=== PATIENT | male | born 1955 | race Caucasian/White ===

== ENCOUNTER 2019-03-14 13:46 | Inpatient (IN) ==
--- NOTE | 2019-03-14 14:09 | Emergency Department Note ---
Disposition General Adult HPI - General Chief complaint: ED Back Pain/Injury Stated complaint: here to be admitted, House [facility] will explai Time Seen by Provider: 03/14/19 14:01 - History of Present Illness Pain Scale: 8 - Related Data Home Medications Medication Instructions Recorded Confirmed Cyclobenzaprine [Flexeril] 10 mg PO TID PRN 01/30/19 02/07/19 Ergocalciferol (VITAMIN D2) 50,000 unit PO MO 01/30/19 02/07/19 [Drisdol (50,000 Unit)] Lisinopril [Zestril] 5 mg PO DAILY 01/30/19 02/07/19 Sennosides/Docusate Sodium 1 each PO DAILY 01/30/19 02/07/19 [Docusate Sodium-Senna Tablet] Oxycodone HCl [Roxybond] 5 mg PO Q6H PRN 02/07/19 02/07/19 Previous Rx's Medication Instructions Recorded DAPTOmycin [Daptomycin] 500 mg IV Q24H #18 vial 03/09/19 Diltiazem CD (24hr) [Cardizem CD] 360 mg PO DAILY #30 cap.er.24h 03/12/19 Lactobacillus [Culturelle] 1 each PO BID #28 cap.sprink 03/12/19 Magnesium Oxide [Mag-Ox] 400 mg PO BID #14 tablet 03/12/19 Metoprolol Succinate 200 mg PO DAILY #30 tab.er.24h 03/12/19 Potassium Chloride 10 meq PO BID #14 tab.er.prt 03/12/19 Sodium Chloride [Sodium Chloride 1 gm PO BIDWM #0 03/12/19 Tab] Warfarin [Coumadin] 7.5 mg PO DAILY@1800 #15 tablet 03/12/19 Allergies Allergy/AdvReac Type Severity Reaction Status Date / Time No Known Allergies Allergy Verified 01/28/19 09:37 Past Medical History - Past Medical History Medical history: Reports: hypertension Surgical history: Reports: non-contributory Psychiatric history: Reports: no psych history - Social History Smoking Status: Never smoker Smokeless Tobacco Status: No Alcohol use: Reports: heavy Drug use: Reports: none Course Vital Signs Temperature 97.7 F 03/14/19 13:53 Pulse Rate 80 03/14/19 13:53 Respiratory Rate 18 03/14/19 13:53 Blood Pressure 112/72 03/14/19 13:53 O2 Sat by Pulse Oximetry 100 03/14/19 13:53 Temperature 97.7 F 03/14/19 13:53 Pulse Rate 80 03/14/19 13:53 Respiratory Rate 18 03/14/19 13:53 Blood Pressure 112/72 03/14/19 13:53 O2 Sat by Pulse Oximetry 100 03/14/19 13:53 Oxygen Delivery Oxygen Delivery Room Air
[2019-03-14 14:46] LABS: Basophils # 0.1 K/mcL (0.0-0.2); Basophils % 0.7 %; Hematocrit 26.8 % (37.5-50.1); Hemoglobin 8.7 g/dL (12.9-16.9); Immature Granulocytes % 0.5 % (0-4); Lymphocytes # 1.4 K/mcL (0.6-4.6); Lymphocytes % 13.5 %; Mean Corpuscular HGB Conc 32.5 g/dL (31.6-35.5); Mean Corpuscular Hemoglobin 30.4 pg (28.0-33.3); Mean Corpuscular Volume 93.7 fL (83.0-100.0); Mean Platelet Volume 10.1 fL (9.4-12.4); Monocytes # 1.1 K/mcL (0.0-1.3); Monocytes % 10.8 %; Neutrophils # 7.8 K/mcL (1.6-8.9); Platelet Count 519 K/mcL (140-400); Red Blood Count 2.86 M/mcL (4.19-5.50); Red Cell Distribution Width 13.8 % (11.5-14.5); Segmented Neutrophils % 74.5 %
[2019-03-14 14:47] LABS: VBG HCO3 25 mEq/L (21-27); VBG PCO2 37 mmHg (41-51); VBG PH 7.43 pH Units (7.32-7.42); VBG PO2 49 mmHg (25-50)
[2019-03-14 14:54] LABS: INR 1.3; Prothrombin Time 15.1 Seconds (9.4-12.1)
[2019-03-14 14:57] LABS: Activated Partial Thrombo Time 32.3 Seconds (26.0-36.0)
[2019-03-14] MEDS ORDERED: 0.9 % Sodium Chloride 1,000 ML IVC ONE (14:59)
[2019-03-14 15:03] LABS: Alanine Aminotransferase 12 Units/L (7-52); Albumin 2.8 g/dL (3.5-5.7); Albumin/Globulin Ratio 0.6 (1.1-2.2); Alkaline Phosphatase 99 Units/L (34-104); Aspartate Amino Transferase 25 Units/L (13-39); BUN/Creatinine Ratio 8 (6-26); Bilirubin,Indirect 0.3 mg/dL (0.0-1.2); Bilirubin,Total 0.3 mg/dL (0.3-1.0); Blood Urea Nitrogen 15 mg/dL (8-23); C-Reactive Protein 124 mg/L (Less than 10); Calcium 7.9 mg/dL (8.6-10.3); Carbon Dioxide 24 mEq/L (23-29); Chloride 97 mEq/L (98-107); Globulin 4.4 g/dL (2.4-3.5); Glucose 130 mg/dL (70-105); Lipase 46 Units/L (11-82); Magnesium 1.3 mg/dL (1.6-2.6); Osmolality,Calculated 281 (280-300); Potassium 3.7 mEq/L (3.5-5.1); Sodium 134 mEq/L (136-145); Total Protein 7.2 g/dL (6.4-8.9); Troponin I < 0.03 ng/mL (< 0.04); eGFR For Non-African Americans 38 (> 60)
--- NOTE | 2019-03-14 16:22 | Emergency Department Note ---
Disposition Clinical Impression: Wound dehiscence, surgical Disposition: Admitted As Inpatient Condition: Serious Forms: ED Satisfaction Letter Time of Disposition: 16:10 General Adult HPI - General Chief complaint: ED Back Pain/Injury Stated complaint: here to be admitted, House [facility] will explai Time Seen by Provider: 03/14/19 14:01 Source: patient Limitations: no limitations Nursing Notes Reviewed: Yes Vital Signs Reviewed: Yes - History of Present Illness HPI Narrative: Patient presents emergency Department with chief complaint of wound dehiscence of his back. 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 They have been at a rehabilitation facility now for 3 days, he had been doing well, yesterday they noticed a small opening in his wound, today when they changed his dressing, the opening had significantly increased and there was yellow drainage, and they would contacted the nurse practitioner for the surgeon who referred him to the emergency department. He states that he has actually been doing very well he is eating he is drinking he is getting up and walking around he has no new numbness weakness no fevers no chills. Denies headache neck pain chest pain or shortness of breath he denies any increased back pain. He denies any other acute concerns. Pain Scale: 8 - Related Data Home Medications Medication Instructions Recorded Confirmed Cyclobenzaprine [Flexeril] 10 mg PO TID PRN 01/30/19 03/14/19 Ergocalciferol (VITAMIN D2) 50,000 unit PO MO 01/30/19 03/14/19 [Drisdol (50,000 Unit)] Lisinopril [Zestril] 5 mg PO DAILY 01/30/19 03/14/19 Sennosides/Docusate Sodium 1 each PO DAILY 01/30/19 03/14/19 [Docusate Sodium-Senna Tablet] Oxycodone HCl [Roxybond] 5 mg PO Q6H PRN 02/07/19 03/14/19 Previous Rx's Medication Instructions Recorded DAPTOmycin [Daptomycin] 500 mg IV Q24H #18 vial 03/09/19 Diltiazem CD (24hr) [Cardizem CD] 360 mg PO DAILY #30 cap.er.24h 03/12/19 Lactobacillus [Culturelle] 1 each PO BID #28 cap.sprink 03/12/19 Magnesium Oxide [Mag-Ox] 400 mg PO BID #14 tablet 03/12/19 Metoprolol Succinate 200 mg PO DAILY #30 tab.er.24h 03/12/19 Potassium Chloride 10 meq PO BID #14 tab.er.prt 03/12/19 Sodium Chloride [Sodium Chloride 1 gm PO BIDWM #0 03/12/19 Tab] Warfarin [Coumadin] 7.5 mg PO DAILY@1800 #15 tablet 03/12/19 Allergies Allergy/AdvReac Type Severity Reaction Status Date / Time No Known Allergies Allergy Verified 01/28/19 09:37 All systems ED: reviewed and negative except as stated. Review of Systems: As Per HPI Past Medical History - Past Medical History Medical history: Reports: atrial fibrillation, cirrhosis, hypertension Surgical history: Reports: non-contributory Psychiatric history: Reports: no psych history - Social History Smoking Status: Never smoker Smokeless Tobacco Status: No Alcohol use: Reports: heavy Drug use: Reports: none Physical Exam - General Limitations: no limitations General appearance: alert, in no apparent distress - Head Head exam: atraumatic, normocephalic - Eye Eye exam: Present: normal appearance, PERRL - ENT ENT exam: normal exam, normal oropharynx - Neck Neck exam: Present: normal inspection, full ROM - Chest Chest inspection: Present: normal inspection, symmetric chest wall rise - Respiratory Respiratory exam: Present: normal lung sounds bilaterally, respiratory distress - Cardiovascular Cardiovascular exam: Present: regular rate, normal rhythm - Abdominal Exam Abdominal exam: Present: soft, Non-Tender. Absent: organomegaly - Male exam: Present: other (Intact perineal sensation) - Extremities Exam Extremities exam: Present: normal inspection, full ROM, normal capillary refill. Absent: tenderness, pedal edema - Expanded Lower Extremity Exam Neurovascular/Tendon exam: Present: normal capillary refill. Absent: pulse de ficit, motor deficit, sensory deficit, tendon deficit - Back Exam Back exam: Present: other (Evaluation of the patient's back reveals a large midline incision, approximately two thirds [address] the way down, there is evidence for wound dehiscence, the wound is open approximately 4 cm in the vertical direction, is open about 1 cm wide, and extends approximately 2 and half centimeter deep, no obvious tracking, but there is visualized underlying muscle and soft tissue. Small amount of yellow drainage, with a slightly abnormal odor, no surrounding erythema, no palpable crepitus no significant swelling.) - Neurological Exam Neurological exam: Present: alert, oriented X3, CN II-XII intact, motor sensory deficit, reflexes normal, other (No evidence of cauda equina syndrome) - Psychiatric Psychiatric exam: Present: normal affect, normal mood - Skin Skin exam: Present: warm, intact, other (Patient is slightly pale in appearance no jaundice no petechia) Course Vital Signs Temperature 97.7 F 03/14/19 13:53 Pulse Rate 80 03/14/19 13:53 Respiratory Rate 18 03/14/19 13:53 Blood Pressure 112/72 03/14/19 13:53 O2 Sat by Pulse Oximetry 100 03/14/19 13:53 Temperature 97.7 F 03/14/19 14:54 Pulse Rate 80 03/14/19 14:54 Respiratory Rate 18 03/14/19 14:54 Blood Pressure 112/72 03/14/19 14:54 O2 Sat by Pulse Oximetry 100 03/14/19 14:54 Oxygen Delivery Oxygen Delivery Room Air Medical Decision Making - [facility] Narrative Medical decision making narrative: Patient had an IV placed, he was started on IV fluids, he had already received IV daptomycin today. I contacted Dr. Nguyen this patient's neurosurgeon/back specialist surgeon, who performed the procedure, described his evidence of wound dehiscence on my examination, he has recommended that the patient undergo lab oratory testing, be admitted to medicine, consult infectious disease and he will see this patient tonight. He will decide any further management in regards to imaging or surgical management. The patient has no signs or symptoms of epidural abscess he has no increased pain no fever no numbness no weakness no incontinence he has normal reflexes and a normal neurologic exam. No emergency department imaging indicated at this time further management to be provided by neurosurgical/predictive maintenance specialist. Basic laboratory studies showed stable chronic anemia, improved creatinine of 1.8 decreased from 1.9 no left leg disturbance, mildly elevated lactic acid of 2.4, sed rate of 70 which is stable CRP of 124 which is increasing from 98. Remainder laboratory studies were within acceptable limits. Chest x-ray demonstrated a right pleural effusion, slightly increased from previous no other acute abnormality. Patient has no chest pain or shortness of breath no tachycardia and no hypoxia, and had a pleural effusion there previously, the more pronounced appears may be positional, this will require further evaluation as an inpatient but currently patient is without symptoms and he had a prior pleural effusion, no indication for further evaluation emergency apartment. The patient admitted to the hospital service for further evaluation and management. - Medical Records Medical records reviewed: Yes I reviewed the patient's medical records. - Lab Data Lab results reviewed: Yes I reviewed the patient's lab results. Result diagrams: 03/14/19 14:25 03/14/19 14:25 Lab Results 03/14/19 03/14/19 03/14/19 Range/Units 14:25 14:25 14:25 WBC 10.4 (4.3-11.1) K/mcL RBC 2.86 L (4.19-5.50) M/mcL Hgb 8.7 L (12.9-16.9) g/dL Hct 26.8 L (37.5-50.1) % MCV 93.7 (83.0-100.0) fL MCH 30.4 (28.0-33.3) pg MCHC 32.5 (31.6-35.5) g/dL RDW 13.8 (11.5-14.5) % Plt Count 519 H (140-400) K/mcL MPV 10.1 (9.4-12.4) fL Immature Gran % 0.5 (0-4) % Seg Neutrophils % 74.5 % Lymphocytes % 13.5 % Monocytes % 10.8 % Eosinophils % 0.0 % Basophils % 0.7 % Neutrophils # 7.8 (1.6-8.9) K/mcL Lymphocytes # 1.4 (0.6-4.6) K/mcL Monocytes # 1.1 (0.0-1.3) K/mcL Eosinophils # 0.0 (0.0-0.6) K/mcL Basophils # 0.1 (0.0-0.2) K/mcL ESR 70 H (0-10) mm/hr PT (9.4-12.1) Seconds INR APTT (26.0-36.0) Seconds VBG pH (7.32-7.42) pH Units VBG pCO2 (41-51) mmHg VBG pO2 (25-50) mmHg VBG HCO3 (21-27) mEq/L Sodium (136-145) mEq/L Potassium (3.5-5.1) mEq/L Chloride (98-107) mEq/L Carbon Dioxide (23-29) mEq/L BUN (8-23) mg/dL Creatinine (0.70-1.30) mg/dL Est GFR ( Amer) (> 60) Est GFR (Non-Af Amer) (> 60) BUN/Creatinine Ratio (6-26) Glucose (70-105) mg/dL Calculated Osmolality (280-300) Lactic Acid (0.5-2.2) mmol/L Calcium (8.6-10.3) mg/dL Magnesium (1.6-2.6) mg/dL Total Bilirubin (0.3-1.0) mg/dL Direct Bilirubin (0.0-0.2) mg/dL Indirect Bilirubin (0.0-1.2) mg/dL AST (13-39) Units/L ALT (7-52) Units/L Alkaline Phosphatase (34-104) Units/L Ammonia 35 (16-53) mcmol/L Troponin I (< 0.04) ng/mL C-Reactive Protein (Less than 10) mg/L Serum Total Protein (6.4-8.9) g/dL Albumin (3.5-5.7) g/dL Globulin (2.4-3.5) g/dL Albumin/Globulin Ratio (1.1-2.2) Lipase (11-82) Units/L 03/14/19 03/14/19 03/14/19 Range/Units 14:25 14:25 14:25 WBC (4.3-11.1) K/mcL RBC (4.19-5.50) M/mcL Hgb (12.9-16.9) g/dL Hct (37.5-50.1) % MCV (83.0-100.0) fL MCH (28.0-33.3) pg MCHC (31.6-35.5) g/dL RDW (11.5-14.5) % Plt Count (140-400) K/mcL MPV (9.4-12.4) fL Immature Gran % (0-4) % Seg Neutrophils % % Lymphocytes % % Monocytes % % Eosinophils % % Basophils % % Neutrophils # (1.6-8.9) K/mcL Lymphocytes # (0.6-4.6) K/mcL Monocytes # (0.0-1.3) K/mcL Eosinophils # (0.0-0.6) K/mcL Basophils # (0.0-0.2) K/mcL ESR (0-10) mm/hr PT 15.1 H (9.4-12.1) Seconds INR 1.3 APTT 32.3 (26.0-36.0) Seconds VBG pH (7.32-7.42) pH Units VBG pCO2 (41-51) mmHg VBG pO2 (25-50) mmHg VBG HCO3 (21-27) mEq/L Sodium 134 L (136-145) mEq/L Potassium 3.7 (3.5-5.1) mEq/L Chloride 97 L (98-107) mEq/L Carbon Dioxide 24 (23-29) mEq/L BUN 15 (8-23) mg/dL Creatinine 1.83 H (0.70-1.30) mg/dL Est GFR ( Amer) 46 L (> 60) Est GFR (Non-Af Amer) 38 L (> 60) BUN/Creatinine Ratio 8 (6-26) Glucose 130 H (70-105) mg/dL Calculated Osmolality 281 (280-300) Lactic Acid 2.4 H (0.5-2.2) mmol/L Calcium 7.9 L (8.6-10.3) mg/dL Magnesium 1.3 L (1.6-2.6) mg/dL Total Bilirubin 0.3 (0.3-1.0) mg/dL Direct Bilirubin 0.0 (0.0-0.2) mg/dL Indirect Bilirubin 0.3 (0.0-1.2) mg/dL AST 25 (13-39) Units/L ALT 12 (7-52) Units/L Alkaline Phosphatase 99 (34-104) Units/L Ammonia (16-53) mcmol/L Troponin I < 0.03 (< 0.04) ng/mL C-Reactive Protein 124 H (Less than 10) mg/L Serum Total Protein 7.2 (6.4-8.9) g/dL Albumin 2.8 L (3.5-5.7) g/dL Globulin 4.4 H (2.4-3.5) g/dL Albumin/Globulin Ratio 0.6 L (1.1-2.2) Lipase 46 (11-82) Units/L 03/14/19 Range/Units 14:42 WBC (4.3-11.1) K/mcL RBC (4.19-5.50) M/mcL Hgb (12.9-16.9) g/dL Hct (37.5-50.1) % MCV (83.0-100.0) fL MCH (28.0-33.3) pg MCHC (31.6-35.5) g/dL RDW (11.5-14.5) % Plt Count (140-400) K/mcL MPV (9.4-12.4) fL Immature Gran % (0-4) % Seg Neutrophils % % Lymphocytes % % Monocytes % % Eosinophils % % Basophils % % Neutrophils # (1.6-8.9) K/mcL Lymphocytes # (0.6-4.6) K/mcL Monocytes # (0.0-1.3) K/mcL Eosinophils # (0.0-0.6) K/mcL Basophils # (0.0-0.2) K/mcL ESR (0-10) mm/hr PT (9.4-12.1) Seconds INR APTT (26.0-36.0) Seconds VBG pH 7.43 H (7.32-7.42) pH Units VBG pCO2 37 L (41-51) mmHg VBG pO2 49 (25-50) mmHg VBG HCO3 25 (21-27) mEq/L Sodium (136-145) mEq/L Potassium (3.5-5.1) mEq/L Chloride (98-107) mEq/L Carbon Dioxide (23-29) mEq/L BUN (8-23) mg/dL Creatinine (0.70-1.30) mg/dL Est GFR ( Amer) (> 60) Est GFR (Non-Af Amer) (> 60) BUN/Creatinine Ratio (6-26) Glucose (70-105) mg/dL Calculated Osmolality (280-300) Lactic Acid (0.5-2.2) mmol/L Calcium (8.6-10.3) mg/dL Magnesium (1.6-2.6) mg/dL Total Bilirubin (0.3-1.0) mg/dL Direct Bilirubin (0.0-0.2) mg/dL Indirect Bilirubin (0.0-1.2) mg/dL AST (13-39) Units/L ALT (7-52) Units/L Alkaline Phosphatase (34-104) Units/L Ammonia (16-53) mcmol/L Troponin I (< 0.04) ng/mL C-Reactive Protein (Less than 10) mg/L Serum Total Protein (6.4-8.9) g/dL Albumin (3.5-5.7) g/dL Globulin (2.4-3.5) g/dL Albumin/Globulin Ratio (1.1-2.2) Lipase (11-82) Units/L
[2019-03-14] MEDS ORDERED: Mag Hydrox/Al Hydrox/Simeth 30 ML UDC PO PRN (16:51)
[2019-03-14] MEDS ORDERED: *HR* Promethazine 25 MG/ML VIAL IVP PRN (16:51)
[2019-03-14] MEDS ORDERED: Naloxone 0.4 MG/ML INJ IVP PRN (16:51)
[2019-03-14] MEDS ORDERED: Ondansetron 4 MG/2 ML VIAL IVP PRN (16:51)
--- NOTE | 2019-03-14 16:57 | Internal Med History&Physical ---
Date of Encounter: 03/14/19 Time of Encounter: 16:54 Internal Medicine - H&P: HPI Admitted From: Long-term Nursing Facility Plans for Post Hospital Care: Transfer [facility] History of present illness: Mr. Atkins is a 63 year old male presents emergency Department with chief complaint of wound dehiscence of his back. 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 He has been at a rehabilitation facility now for 3 days, he had been doing well, yesterday they noticed a small opening in his wound, today when they changed his dressing, the opening had significantly increased and there was yellow drainage, and they would contacted the nurse practitioner for the surgeon who referred him to the emergency department. He states that he has actually been doing very well he is eating he is drinking he is getting up and walking around he has no new numbness weakness no fevers no chills. Denies headache neck pain chest pain or shortness of breath he denies any increased back pain. He denies any other acute concerns. While in the ED, patient vital signs were stable, labs were unremarkable in comparison to his baseline. Patient will be admitted for further evaluation. CODE STATUS discussed with patient, he wishes to be full code. Past Med Surg Social Fam HX - Past Medical History Medical history: atrial fibrillation, cirrhosis, hypertension Additional medical history: anemia Psychiatric history: no psych history - Past Surgical History Surgical History: non-contributory Additional surgical history: Spinal fusion - Social History Smoking Status: Never smoker Smokeless Tobacco Status: No Alcohol use: heavy Drug use: none - Family History Brother Adopted: No Family Member Ethnicity: Non- Living Status: Still Living Hx Family Cardiac Disorders: No Hx Family Respiratory Disorders: Yes (Asthma) Hx Family Cancer: No Hx Family GI Disorders: No Hx Family Endocrine Disorder: No Hx Family Neuromuscular Disorders: No Hx Family Neurologic Disorders: No Hx Family HEENT Disorders: No Hx Family Autoimmune Disorders: No Mother Hx Family Cardiac Disorders: Yes Internal Medicine - H&P: Meds Cyclobenzaprine [Flexeril] 10 mg PO TID PRN 01/30/19 [History] Ergocalciferol (VITAMIN D2) [Drisdol (50,000 Unit)] 50,000 unit PO MO 01/30/19 [History] Lisinopril [Zestril] 5 mg PO DAILY 01/30/19 [History] Sennosides/Docusate Sodium [Docusate Sodium-Senna Tablet] 1 each PO DAILY 01/30/19 [History] Oxycodone HCl [Roxybond] 5 mg PO Q6H PRN 02/07/19 [History] DAPTOmycin [Daptomycin] 500 mg IV Q24H #18 vial 03/09/19 [Rx] Diltiazem CD (24hr) [Cardizem CD] 360 mg PO DAILY #30 cap.er.24h 03/12/19 [Rx] Lactobacillus [Culturelle] 1 each PO BID #28 cap.sprink 03/12/19 [Rx] Magnesium Oxide [Mag-Ox] 400 mg PO BID #14 tablet 03/12/19 [Rx] Metoprolol Succinate 200 mg PO DAILY #30 tab.er.24h 03/12/19 [Rx] Potassium Chloride 10 meq PO BID #14 tab.er.prt 03/12/19 [Rx] Sodium Chloride [Sodium Chloride Tab] 1 gm PO BIDWM #0 03/12/19 [Rx] Warfarin [Coumadin] 7.5 mg PO DAILY@1800 #15 tablet 03/12/19 [Rx] Allergy/AdvReac Type Severity Reaction Status Date / Time No Known Allergies Allergy Verified 01/28/19 09:37 All Systems PM: A 10-system review of systems was performed and is negative for pertinent findings except as documented above in the HPI. Review of systems: REVIEW OF SYSTEMS: CONSTITUTIONAL: No weight loss, fever, chills, weakness or fatigue. HEENT: Eyes: No visual loss, blurred vision, double vision or yellow sclerae. Ears, Nose, Throat: No hearing loss, sneezing, congestion, runny nose or sore throat. SKIN: No rash or itching. CARDIOVASCULAR: No chest pain, chest pressure or chest discomfort. No palpitations or edema. RESPIRATORY: No shortness of breath, cough or sputum. GASTROINTESTINAL: No anorexia, nausea, vomiting or diarrhea. No abdominal pain or blood. GENITOURINARY: No dysuria, urgency, or frequency. NEUROLOGICAL: No headache, dizziness, syncope, paralysis, ataxia, numbness or tingling in the extremities. No change in bowel or bladder control. MUSCULOSKELETAL: see HPI. HEMATOLOGIC: No anemia, bleeding or bruising. LYMPHATICS: No enlarged nodes. No history of splenectomy. PSYCHIATRIC: No history of depression or anxiety. ENDOCRINOLOGIC: No reports of sweating, cold or heat intolerance. No polyuria or polydipsia. - Constitutional Vitals: Temp Pulse Resp BP Pulse Ox 97.7 F 80 18 112/72 100 03/14/19 14:54 03/14/19 14:54 03/14/19 14:54 03/14/19 14:54 03/14/19 14:54 General appearance: Present: A&O X 3 Exam: PHYSICAL EXAMINATION: GENERAL APPEARANCE: The patient is alert, oriented and in no acute distress. HEENT: Head is normocephalic. The sinuses are nontender. Pupils are equal and reactive. The nares are patent. Oropharynx clear without lesions. NECK: Supple without lymphadenopathy. HEART: Regular rate and rhythm. LUNGS: No crackles or wheezes are heard. ABDOMEN: Soft, nontender, nondistended with good bowel sounds heard. Inguinal area is normal. EXTREMITIES: Without cyanosis, clubbing or edema. NEUROLOGICAL: Gross nonfocal. SKIN: back wound dressing intact. Internal Med - H&P Results - Labs CBC & Chem 7: 03/14/19 14:25 03/14/19 14:25 Labs: Short CBC 03/14/19 Range/Units 14:25 WBC 10.4 (4.3-11.1) K/mcL Hgb 8.7 L (12.9-16.9) g/dL Hct 26.8 L (37.5-50.1) % Plt Count 519 H (140-400) K/mcL Neutrophils # 7.8 (1.6-8.9) K/mcL BMP 03/14/19 14:25 Sodium 134 L Potassium 3.7 Chloride 97 L Carbon Dioxide 24 BUN 15 Creatinine 1.83 H Glucose 130 H Calcium 7.9 L Cardiac Enzymes 03/14/19 Range/Units 14:25 Troponin I < 0.03 (< 0.04) ng/mL Liver Function 03/14/19 Range/Units 14:25 Total Bilirubin 0.3 (0.3-1.0) mg/dL Direct Bilirubin 0.0 (0.0-0.2) mg/dL AST 25 (13-39) Units/L ALT 12 (7-52) Units/L Alkaline Phosphatase 99 (34-104) Units/L Albumin 2.8 L (3.5-5.7) g/dL - ABG Interpretation ABG results: 03/14/19 14:42 VBG pH 7.43 H VBG pCO2 37 L VBG pO2 49 VBG HCO3 25 - Impressions ITS Impressions Chest X-Ray 03/14/19 14:01 IMPRESSION: 1. Layering right pleural effusion with associated atelectasis. D/ / Ron Singh MD / Ron Singh MD Interpreting Provider: Ron Singh MD - Assessment and Plan (1) Wound dehiscence, surgical Current Visit: Yes Status: Acute Assessment and plan: Continue scheduled IV antibiotics, orthopedic surgery consult, ID consult. Wound care consult. Qualifiers: Encounter type: initial encounter Qualified Code(s): T81.31XA - Disruption of external operation (surgical) wound, not elsewhere classified, initial encounter (2) Wound infection after surgery Current Visit: No Status: Acute Assessment and plan: Continue current antibiotics, ID consult. (3) Hypomagnesemia Current Visit: Yes Status: Acute Assessment and plan: Replaced, continue home oral magnesium supplement, repeat labs in the morning. (4) CKD (chronic kidney disease) Current Visit: No Status: Chronic Assessment and plan: Cr at the baseline, continue monitoring. Qualifiers: Chronic kidney disease stage: stage 3 (moderate) Qualified Code(s): N18.3 - Chronic kidney disease, stage 3 (moderate) (5) HTN (hypertension) Current Visit: No Status: Chronic Assessment and plan: Continue monitoring BP, continue home medication. Qualifiers: Hypertension type: essential hypertension Qualified Code(s): I10 - Essential (primary) hypertension (6) Afib Current Visit: No Status: Acute Assessment and plan: Rate controlled, INR 1.3 today continue home medication including Coumadin pharmacy to dose. Qualifiers: Atrial fibrillation type: unspecified Qualified Code(s): I48.91 - Unspec ified atrial fibrillation (7) Severe protein-calorie malnutrition Current Visit: No Status: Acute Assessment and plan: nutrition consult if indicated. (8) DVT prophylaxis Current Visit: Yes Status: Acute Assessment and plan: Patient on Coumadin. - Time Spent With Patient Total time spent is greater than 50% in coordination of care (as documented) at patient's floor/unit and/or counseling patient: Greater than 35 minutes
[2019-03-14] MEDS ORDERED: DAPTOmycin 500 MG VIAL IVPB SCH (17:00)
[2019-03-14] MEDS ORDERED: *HR* Warfarin 7.5 MG TABLET PO ONE (18:00)
[2019-03-14] MEDS ORDERED: Warfarin perPT PO PRN (18:00)
[2019-03-14] MEDS: *HR* OxyCODONE Immed Rel 5 MG TABLET PO PRN (19:06)
[2019-03-14] MEDS: Lactobacillus 1 EACH CAP.SPRINK PO SCH (21:27)
[2019-03-14] MEDS: Magnesium Oxide 400 MG TABLET PO SCH (21:27)
[2019-03-15] MEDS: *HR* OxyCODONE Immed Rel 5 MG TABLET PO PRN (03:29)
[2019-03-15 04:31] LABS: Basophils # 0.1 K/mcL (0.0-0.2); Basophils % 0.7 %; Hematocrit 26.7 % (37.5-50.1); Hemoglobin 8.8 g/dL (12.9-16.9); Immature Granulocytes % 0.5 % (0-4); Lymphocytes # 1.4 K/mcL (0.6-4.6); Lymphocytes % 14.8 %; Mean Corpuscular Hemoglobin 30.7 pg (28.0-33.3); Mean Platelet Volume 10.1 fL (9.4-12.4); Monocytes # 1.2 K/mcL (0.0-1.3); Monocytes % 11.9 %; Platelet Count 399 K/mcL (140-400); Red Blood Count 2.87 M/mcL (4.19-5.50); Red Cell Distribution Width 13.9 % (11.5-14.5); Segmented Neutrophils % 72.1 %
[2019-03-15 04:42] LABS: INR 1.4; Prothrombin Time 15.3 Seconds (9.4-12.1)
[2019-03-15 04:46] LABS: Calcium 8.2 mg/dL (8.6-10.3); Magnesium 1.7 mg/dL (1.6-2.6); Potassium 3.6 mEq/L (3.5-5.1)
[2019-03-15 07:16] LABS: Bilirubin,Urine Negative (Negative); Blood,Urine Negative (Negative); Clarity,Urine Clear (Clear); Color,Urine Yellow (Yellow); Glucose,Urine (UA) Normal (Normal); Ketones,Urine Negative (Negative); Leukocyte Esterase,Urine Negative (Negative); Nitrite,Urine Negative (Negative); PH,Urine 6.5 pH Units (5.0-8.0); Protein,Urine Trace mg/dL (Neg-Trace); Specific Gravity,Urine 1.007 (1.010-1.025); Urobilinogen,Urine Normal (Normal)
--- NOTE | 2019-03-15 08:47 | Infectious Disease Consult ---
Infectious Disease-Consult - Encounter Date/Time Date of Encounter: 03/15/19 Time of Encounter: 11:12 - Data of Consult Patient: known to practice within the last 3 years Reason for consult: Surgical wound dehiscence Consult date: 03/15/19 Requesting Physician: Mojgan Roth Primary Care Provider: Amanda Kelley CNP - HPI HPI: Mr. Atkins is a 63 -year-old male with a past medical history of A. fib, cirrhosis, hypertension, acute kidney injury on CKD, and is post T11-L2 spinal fusion secondary to L1 burst fracture in November, status post I&D with hardware removal in January currently on IV daptomycin therapy. The patient was admitted to the hospital 03/14/19 for surgical wound dehiscence. We are consulted 03/15/19 for further workup and treatment recommendations for surgical wound dehiscence. Briefly, the patient is a 63-year-old male with past medical history as stated above. The patient is well-known to the infectious disease services we are really following his course of treatment and monitoring his outpatient antibiotic therapy. The patient was admitted to the hospital back in January after he developed altered mental status and surgical wound infection that is post spinal fusion in November at [facility] secondary to an L1 burst fracture. He was taken to the operating room 02/12/19 Dr. Nguyen and had removal of hardware and I&D. Intraoperative cultures were negative, but preop swab cultures of the wound were positive for MRSA. He was initially started on IV vancomycin, but developed acute kidney injury so we switched over to IV daptomycin. He was discharged to rehabilitation couple of weeks ago and was discharged home from there about 5 days ago. Apparently, he developed surgical wound dehiscence and came back to the ER for evaluation. Upon arrival, he was afebrile hemodynamically stable. White blood cell count was normal. ESR is improved at 70 with a CRP of 124. Lactic acid was initially mildly elevated, but normalized. LFTs were normal. Serum creatinine was elevated at 1.83 consistent with his AK I on CK D. He had a chest x-ray that showed a layering right pleural effusion with associated atelectasis. Blood cultures were obtained 2 sets and are pending. He was restarted on his IV daptomycin and admitted to the hospital for further evaluation. The patient has remained afebrile hemodynamically stable. Urinalysis was negative. Orthopedics consult is pending. Currently, he is on IV daptomycin. We have been asked to evaluate and make further recommendations. During my exam today, the patient endorses a history as stated above. He states overall he has been feeling well. Denies fevers, chills, rigors. Denies chest pain, shortness of breath, or cough. Denies nausea, vomiting, diarrhea, or constipation. Reports very minimal pain the surgical site. Reports a small amount of green/yellow drainage that is very thin in nature and not particularly purulent. States appetite is been okay. Has not had dialysis since discharge. Denies oral thrush or new skin rashes. States he has been 100% compliant with his IV antibiotics. The patient had been residing at a local rehabilitation facility until Friday when he was discharged home. Denies tobacco or illicit drug use. Denies chronic infectious diseases. Denies recent travel outside the [facility]. Previously was a heavy drinker and was drinking at least 6 beers the day prior t o his recent admission. - ROS Review of Systems: All systems reviewed and no additional remarkable complaints except as stated. - Results CBC & Chem 7: 03/17/19 08:45 03/16/19 07:22 - Exam Vitals: Temp Pulse Resp BP Pulse Ox 97.3 F L 86 14 156/83 97 03/15/19 03:24 03/15/19 03:24 03/15/19 03:24 03/15/19 03:24 03/15/19 07:28 Exam: Head: Atraumatic, normal inspection, normocephalic. Eye: EOMI, PERRLA, no scleral icterus noted. ENT: Mucous membranes moist. No odontogenic infection noted. Neck: Normal inspection, no meningismus. Respiratory: Clear to auscultation. No rales, respiratory distress, rhonchi, or wheezes noted. Cardiovascular: Regular rate and rhythm, S1 and S2 audible. No murmurs, rubs, or gallops. GI: Soft, nondistended, normal bowel sounds. Extremities:No joint swelling, pedal edema, or tenderness noted. Back: Surgical site noted with wound dehiscence to the middle of the surgical site. Small amount of yellow/green drainage noted. No foul odor surrounding erythema noted. The skin does appear macerated. Other sutures and Steri-Strips intact. No tenderness or fluctuance noted. Neurological: Alert, oriented 3, no focal deficits. Psychiatric: normal affect, normal mood. Skin: Dry, intact, warm. Normal color. No rashes. Cyclobenzaprine [Flexeril] 10 mg PO TID PRN 01/30/19 [History] Ergocalciferol (VITAMIN D2) [Drisdol (50,000 Unit)] 50,000 unit PO MO 01/30/19 [History] Lisinopril [Zestril] 5 mg PO DAILY 01/30/19 [History] Sennosides/Docusate Sodium [Docusate Sodium-Senna Tablet] 1 each PO DAILY 01/30/19 [History] Oxycodone HCl [Roxybond] 5 mg PO Q6H PRN 02/07/19 [History] DAPTOmycin [Daptomycin] 500 mg IV Q24H #18 vial 03/09/19 [Rx] Diltiazem CD (24hr) [Cardizem CD] 360 mg PO DAILY #30 cap.er.24h 03/12/19 [Rx] Lactobacillus [Culturelle] 1 each PO BID #28 cap.sprink 03/12/19 [Rx] Magnesium Oxide [Mag-Ox] 400 mg PO BID #14 tablet 03/12/19 [Rx] Metoprolol Succinate 200 mg PO DAILY #30 tab.er.24h 03/12/19 [Rx] Potassium Chloride 10 meq PO BID #14 tab.er.prt 03/12/19 [Rx] Sodium Chloride [Sodium Chloride Tab] 1 gm PO BIDWM #0 03/12/19 [Rx] Warfarin [Coumadin] 7.5 mg PO DAILY@1800 #15 tablet 03/12/19 [Rx] Allergy/AdvReac Type Severity Reaction Status Date / Time No Known Allergies Allergy Verified 03/15/19 10:39 - Assessment and Plan (1) Wound dehiscence, surgical Current Visit: Yes Status: Acute Location: Lumbar spine. Etiology: Likely multifactorial: Poor nutrition was a bony prominence plus possible infection. Orthospine consult. Await recommendations. ESR improved, but CRP back up. Currently on daptomycin. Qualifiers: Encounter type: initial encounter Qualified Code(s): T81.31XA - Disruption of external operation (surgical) wound, not elsewhere classified, initial encounter SNOMED Code(s): 506437729 (2) Wound infection after surgery Current Visit: No Status: Acute Causative organism: MRSA. Etiology: Likely secondary to recent surgical procedure. Status post posterior fusion of T 11 through L2 at [facility] 3 weeks prior to admission. CT thoracic and lumbar spine 02/09/19 showed a posterior changes status post multilevel thoracolumbar fusion with satisfactory position of the pedicle screws and rods and L1 burst fracture with retropulsion causing severe canal stenosis with evidence of decompressive laminectomy identified. Ortho-spine consult and following. Status post fusion exploration, removal of hardware, and I & D 02/12/[address] Nguyen. Operative note reviewed. No gross purulence noted. Intra-op cultures negative. Status post I & D and closure of wound 02/15/[address] Nguyen. Operative note reviewed. No purulence noted. No additional cultures obtained. Currently on Daptomycin. SNOMED Code(s): 47657998, 870109725 (3) ESTEVAN (acute kidney injury) Current Visit: No Status: Acute Improved. Has not been on dialysis since discharge from the hospital. Serum creatinine improves. Strict I's and O's. Avoid nephrotoxic agents and dose adjust medications. SNOMED Code(s): 49642531, 47240413 (4) History of lumbar fusion Current Visit: No Status: Chronic Status post spinal fusion T11-L2 at [facility] secondary to L1 burst fracture. SNOMED Code(s): 099602230, 309308412 (5) Anemia Current Visit: No Status: Chronic Qualifiers: Anemia type: iron deficiency Iron deficiency anemia type: unspecified iron deficiency Qualified Code(s): D50.9 - Iron deficiency anemia, unspecified SNOMED Code(s): 077863832 (6) CKD (chronic kidney disease) Current Visit: No Status: Chronic Qualifiers: Chronic kidney disease stage: stage 3 (moderate) Qualified Code(s): N18.3 - Chronic kidney disease, stage 3 (moderate) SNOMED Code(s): 610803608 (7) Afib Current Visit: No Status: Acute Qualifiers: Atrial fibrillation type: unspecified Qualified Code(s): I48.91 - Unspecified atrial fibrillation SNOMED Code(s): 57083085 (8) Cirrhosis Current Visit: No Status: Chronic Qualifiers: Hepatic cirrhosis type: alcoholic cirrhosis Qualified Code(s): K70.31 - Alcoholic cirrhosis of liver with ascites SNOMED Code(s): 47150062 - Recommendations Recommendations: Check CK level. Await blood cultures to finalize. Await further recommendations from the orthospine team. If no further surgical intervention is planned, will order wound cultures. Wound care per the orthospine team. Continue daptomycin 500 mg IV every 24 hours. Duration of treatment depends on the clinical picture. Monitor renal function and does adjust antibiotics. Past Med Surg Social Fam HX - Past Medical History Medical history: atrial fibrillation, cirrhosis, hypertension Additional medical history: anemia Psychiatric history: no psych history - Past Surgical History Surgical History: non-contributory Additional surgical history: Spinal fusion - Social History Smoking Status: Never smoker Smokeless Tobacco Status: No Alcohol use: heavy Drug use: none - Family History Mother Hx Family Cardiac Disorders: Yes Brother Adopted: No Family Member Ethnicity: Non- Living Status: Still Living Hx Family Cardiac Disorders: No Hx Family Respiratory Disorders: Yes (Asthma) Hx Family Cancer: No Hx Family GI Disorders: No Hx Family Endocrine Disorder: No Hx Family Neuromuscular Disorders: No Hx Family Neurologic Disorders: No Hx Family HEENT Disorders: No Hx Family Autoimmune Disorders: No Consult Discharge Plan - Plan Referrals: Amanda Kelley, COTTON PULLER [Primary Care Provider] - - Attending Attestation I have personally performed a face to face evaluation on this patient. I have reviewed and agree with the care plan. History and Exam by me shows: Patient is a 61-year-old gentleman known to our service who is back for wound dehiscence of surgical wound of the lumbar spine. Previously patient had a surgery done at an outside facility with hardware placement and get infected with MRSA. Patient presented here and was taken to surgery by Dr. Nguyen where the hardware was removed and patient had a washout and debridement of the surgical sites. Cultures were positive for MRSA so patient was treated with vancomycin initially but had acute kidney injury and was switched to daptomycin. Patient was sent to rehabilitation and apparently had a wound dehiscence so was sent back here for evaluation. Assessment and plan 1.Surgical wound dehiscence lumbar spine 2.Wound infection after surgery at outside hospital with MRSA requiring explantation of hardware on 02/12/2019 and closure of the wound on 02/15/2019 3.Acute kidney injury likely secondary to vancomycin. Patient was switched to daptomycin kidney seems to be resolving 4.Liver cirrhosis etiology not clear 5.Atrial fibrillation 6.Chronic kidney disease Recommendations Check CK level. Await blood cultures to finalize. Await further recommendations from the orthospine team. If no further surgical intervention is planned, will order wound cultures. Wound care per the orthospine team. Continue daptomycin 500 mg IV every 24 hours. Duration of treatment depends on the clinical picture. Monitor renal function and does adjust antibiotics.
[2019-03-15] MEDS ORDERED: Sennosides/Docusate Sodium TABLET PO SCH (09:00)
[2019-03-15] MEDS ORDERED: Metoprolol XL (24 HR) Succ 50 MG TAB.ER.24H PO SCH (09:00)
[2019-03-15] MEDS ORDERED: Diltiazem CD (24hr) 180 MG CAPSULE PO SCH (09:00)
[2019-03-15] MEDS: Magnesium Oxide 400 MG TABLET PO SCH (09:11)
[2019-03-15] MEDS: Lactobacillus 1 EACH CAP.SPRINK PO SCH (09:12)
--- NOTE | 2019-03-15 09:13 | Internal Med Progress Note ---
Hospitalist Progress Note - Encounter Date of Encounter: 03/15/19 Time of Encounter: 09:11 - Subjective Interval History: Patient seen and examined in the room. Back wound examined and dressing intact. Orthopedics has seen pt and plan discussed with patient. Pain controlled, no fever, chills, or night seats. - Exam Vitals: Temp Pulse Resp BP Pulse Ox 97.3 F L 86 14 156/83 97 03/15/19 03:24 03/15/19 03:24 03/15/19 03:24 03/15/19 03:24 03/15/19 07:28 Exam: PHYSICAL EXAMINATION: GENERAL APPEARANCE: The patient is alert, oriented and in no acute distress. HEENT: Head is normocephalic. The sinuses are nontender. Pupils are equal and reactive. The nares are patent. Oropharynx clear without lesions. NECK: Supple without lymphadenopathy. HEART: Regular rate and rhythm. LUNGS: No crackles or wheezes are heard. ABDOMEN: Soft, nontender, nondistended with good bowel sounds heard. Inguinal area is normal. EXTREMITIES: Without cyanosis, clubbing or edema. NEUROLOGICAL: Gross nonfocal. SKIN: back wound dressing intact. - Assessment and Plan (1) Wound dehiscence, surgical Current Visit: Yes Status: Acute Assessment and Plan: Continue scheduled IV antibiotics, orthopedic following, appreciate help. Wound care following, appreciate help. (2) Wound infection after surgery Current Visit: No Status: Acute Assessment and Plan: Continue current antibiotics, ID following, appreciate help. (3) Hypomagnesemia Current Visit: Yes Status: Acute Assessment and Plan: Mag 1.7 today, continue home oral magnesium supplement. (4) CKD (chronic kidney disease) Current Visit: No Status: Chronic Assessment and Plan: Cr at the baseline, continue monitoring. (5) HTN (hypertension) Current Visit: No Status: Chronic Assessment and Plan: Continue monitoring BP, continue home medication. (6) Afib Current Visit: No Status: Acute Assessment and Plan: Rate controlled, INR 1.4 today continue home medication including Coumadin pharmacy to dose. (7) Severe protein-calorie malnutrition Current Visit: No Status: Acute Assessment and Plan: nutrition consult. (8) DVT prophylaxis Current Visit: Yes Status: Acute Assessment and Plan: Patient on Coumadin. - Time Spent with Patient Total time spent is greater than 50% in coordination of care (as documented) at patient's floor/unit and/or counseling patient: Greater than 35 minutes Plan of Care Discussed with: patient Internal Medicine: Result - Labs CBC & Chem 7: 03/15/19 04:01 03/15/19 04:01 Labs: Short CBC 03/14/19 03/15/19 Range/Units 14:25 04:01 WBC 10.4 9.7 (4.3-11.1) K/mcL Hgb 8.7 L 8.8 L (12.9-16.9) g/dL Hct 26.8 L 26.7 L (37.5-50.1) % Plt Count 519 H 399 (140-400) K/mcL Neutrophils # 7.8 7.0 (1.6-8.9) K/mcL BMP 03/14/19 03/15/19 14:25 04:01 Sodium 134 L 135 L Potassium 3.7 3.6 Chloride 97 L 100 Carbon Dioxide 24 26 BUN 15 13 Creatinine 1.83 H 1.70 H Glucose 130 H 92 Calcium 7.9 L 8.2 L Cardiac Enzymes 03/14/19 Range/Units 14:25 Troponin I < 0.03 (< 0.04) ng/mL Liver Function 03/14/19 Range/Units 14:25 Total Bilirubin 0.3 (0.3-1.0) mg/dL Direct Bilirubin 0.0 (0.0-0.2) mg/dL AST 25 (13-39) Units/L ALT 12 (7-52) Units/L Alkaline Phosphatase 99 (34-104) Units/L Albumin 2.8 L (3.5-5.7) g/dL Urine 03/15/19 Range/Units 06:25 Urine Color Yellow (Yellow) Urine Clarity Clear (Clear) Urine pH 6.5 (5.0-8.0) pH Units Ur Specific [place] 1.007 L (1.010-1.025) Urine Protein Trace (Neg-Trace) mg/dL Urine Glucose (UA) Normal (Normal) mg/dL - ABG Interpretation ABG results: PT/INR, D-dimer PT 15.3 Seconds (9.4-12.1) H 03/15/19 04:01 - Impressions Impressions Chest X-Ray 03/14/19 14:01 IMPRESSION: 1. Layering right pleural effusion with associated atelectasis. D/ / Ron Singh MD / Ron Singh MD Interpreting Provider: Ron Singh MD Consult Discharge Plan - Plan Referrals: Amanda Kelley, STENCILER [Primary Care Provider] - (1) Wound dehiscence, surgical Qualifiers: Encounter type: initial encounter Qualified Code(s): T81.31XA - Disruption of external operation (surgical) wound, not elsewhere classified, initial encounter (4) CKD (chronic kidney disease) Qualifiers: Chronic kidney disease stage: stage 3 (moderate) Qualified Code(s): N18.3 - Chronic kidney disease, stage 3 (moderate) (5) HTN (hypertension) Qualifiers: Hypertension type: essential hypertension Qualified Code(s): I10 - Essential (primary) hypertension (6) Afib Qualifiers: Atrial fibrillation type: unspecified Qualified Code(s): I48.91 - Unspecified atrial fibrillation
[2019-03-15] MEDS ORDERED: Ringers Solution, Lactated 1,000 ML IVC SCH (11:00)
[2019-03-15] MEDS ORDERED: DAPTOmycin 500 MG in 0.9 % Sodium Chloride 100 ML IVPB SCH (12:00)
--- NOTE | 2019-03-15 12:27 | Spine Progress Note ---
Date of Encounter: 03/15/19 Time of Encounter: 12:24 - Assessment and Plan (1) Wound dehiscence, surgical Current Visit: Yes Status: Acute Patient is lying comfortably in bed in mild distress secondary to back pain. Afebrile vital signs stable. He is neurovascularly intact with regard to his bilateral lower extremity. He has an opening draining serosanguineous type fluid which approximately 2 cm and is lumbar spine distally. Do not detect gross purulence. His hips move symmetrically. Impression: 1) lumbar wound infection 2) wound dehiscence Plan: We are going to bring him to the operative theater today for irrigation and debridement and packing of his lumbar wound. Will probably bring the patient back to surgery 2 days later for planned irrigation and debridement and closure of his wound. Risk benefits possible complications and alternatives were discussed and the patient would like to proceed. He will be on antibiotics per the infectious disease service. Qualifiers: Encounter type: initial encounter Qualified Code(s): T81.31XA - Disruption of external operation (surgical) wound, not elsewhere classified, initial encounter Subjective Principal diagnosis: Wound dehiscence, infected lumbar wound Interval history: Mr. Atkins is a 63 -year-old male with a past medical history of A. fib, cirrhosis, hypertension, acute kidney injury on CKD, and is post T11-L2 spinal fusion secondary to L1 burst fracture in November, status post I&D with hardware removal in January currently on IV daptomycin therapy. The patient was admitted to the hospital 03/14/19 for surgical wound dehiscence. We are consulted 03/15/19 for further workup and treatment recommendations for surgical wound dehiscence.The patient is well-known to the orthopedic spine and infectious disease services. He was taken to the operating room 02/12/19 and had removal of hardware and I&D. Intraoperative cultures were negative, but preop swab cultures of the wound were positive for MRSA. He had a prolonged hospital course secondary to renal failure and other comorbidities. He was ultimately discharged several days ago to a rehabilitation facility. Medical staff at that outside institution noted wound drainage and some wound dehiscence yesterday so he is admitted for definitive management. He denies fevers or chills currently. Objective Vital signs: Vital Signs Temp Pulse Resp BP Pulse Ox 03/15/19 09:35 98.5 F 87 16 154/86 98 03/15/19 07:28 97 03/15/19 03:24 97.3 F L 86 14 156/83 98 03/14/19 23:44 98.5 F 76 15 150/81 98 03/14/19 18:35 97.7 F 82 18 114/65 97 03/14/19 17:44 73 121/80 99 03/14/19 14:54 97.7 F 80 18 112/72 100 03/14/19 13:53 97.7 F 80 18 112/72 100 Intake and Output 03/14/19 03/15/19 03/15/19 23:59 07:59 15:59 Intake Total 1000 / 1000 104 / 204 100 / 204 Output Total 100 / 100 Balance 1000 / 1000 4 / 104 100 / 104 Intake: IV Fluids 1000 / 1000 104 / 204 100 / 204 0.9 % Sodium Chloride 1,000 ML 1000 / 1000 @ 999 mls/hr IVC .Q1H1M ONE Rx# :[id number] Cubicin 500 MG In 0.9 % Sodium 100 / 100 Chloride 100 ML @ 200 mls/hr IVPB Q24H PARMINDER Rx#:[id number] Magnesium Sulfate 2 GM In 0.9 % 104 / 104 Sodium Chloride 100 ML @ 104 mls/hr IVPB ONCE ONE Rx#: [id number] Output: Urine 100 / 100 Other: Meal NPO Weight 72.3 kg Blood Glucose* 93 Patient Weight 03/15/19 23:59 Weight 72.3 kg - Labs CBC & BMP: 03/15/19 04:01 03/15/19 04:01 Labs: Abnormal lab results RBC 2.87 M/mcL (4.19-5.50) L 03/15/19 04:01 Hgb 8.8 g/dL (12.9-16.9) L 03/15/19 04:01 Hct 26.7 % (37.5-50.1) L 03/15/19 04:01 Plt Count 519 K/mcL (140-400) H 03/14/19 14:25 ESR 70 mm/hr (0-10) H 03/14/19 14:25 PT 15.3 Seconds (9.4-12.1) H 03/15/19 04:01 VBG pH 7.43 pH Units (7.32-7.42) H 03/14/19 14:42 VBG pCO2 37 mmHg (41-51) L 03/14/19 14:42 Sodium 135 mEq/L (136-145) L 03/15/19 04:01 Chloride 97 mEq/L (98-107) L 03/14/19 14:25 1.70 mg/dL (0.70-1.30) H 03/15/19 04:01 Est GFR ( Amer) 50 (> 60) L 03/15/19 04:01 Est GFR (Non-Af Amer) 41 (> 60) L 03/15/19 04:01 Glucose 130 mg/dL (70-105) H 03/14/19 14:25 Lactic Acid 2.4 mmol/L (0.5-2.2) H 03/14/19 14:25 Calcium 8.2 mg/dL (8.6-10.3) L 03/15/19 04:01 Magnesium 1.3 mg/dL (1.6-2.6) L 03/14/19 14:25 124 mg/L (Less than 10) H 03/14/19 14:25 2.8 g/dL (3.5-5.7) L 03/14/19 14:25 4.4 g/dL (2.4-3.5) H 03/14/19 14:25 0.6 (1.1-2.2) L 03/14/19 14:25 Ur Specific [place] 1.007 (1.010-1.025) L 03/15/19 06:25 Consult Discharge Plan - Plan Referrals: Amanda Kelley, CUSTODIAL ENGINEER [Primary Care Provider] -
--- NOTE | 2019-03-15 15:43 | Anesthesia Evaluation PreOp ---
Date of Encounter: 03/15/19 Time of Encounter: 15:55 - Past History Planned Operation: LUMBAR WOUND I&D Cardiac History: HTN, Arrhythmia (AFIB) Pulmonary History: Other (RIGHT PLEURAL EFUSION) Other Medical History: Hepatic (CIRRHOSIS), Renal (CKD3), Other (ANEMIA, WOUND DEHISCENCE) Alcohol Use: heavy Drug use: none Medications and Allergies Cyclobenzaprine [Flexeril] 10 mg PO TID PRN 01/30/19 [History] Ergocalciferol (VITAMIN D2) [Drisdol (50,000 Unit)] 50,000 unit PO MO 01/30/19 [History] Lisinopril [Zestril] 5 mg PO DAILY 01/30/19 [History] Sennosides/Docusate Sodium [Docusate Sodium-Senna Tablet] 1 each PO DAILY 01/30/19 [History] Oxycodone HCl [Roxybond] 5 mg PO Q6H PRN 02/07/19 [History] DAPTOmycin [Daptomycin] 500 mg IV Q24H #18 vial 03/09/19 [Rx] Diltiazem CD (24hr) [Cardizem CD] 360 mg PO DAILY #30 cap.er.24h 03/12/19 [Rx] Lactobacillus [Culturelle] 1 each PO BID #28 cap.sprink 03/12/19 [Rx] Magnesium Oxide [Mag-Ox] 400 mg PO BID #14 tablet 03/12/19 [Rx] Metoprolol Succinate 200 mg PO DAILY #30 tab.er.24h 03/12/19 [Rx] Potassium Chloride 10 meq PO BID #14 tab.er.prt 03/12/19 [Rx] Sodium Chloride [Sodium Chloride Tab] 1 gm PO BIDWM #0 03/12/19 [Rx] Warfarin [Coumadin] 7.5 mg PO DAILY@1800 #15 tablet 03/12/19 [Rx] Allergy/AdvReac Type Severity Reaction Status Date / Time No Known Allergies Allergy Verified 03/15/19 10:39 - Meds/Allergy Pre-op Review Medications Reviewed: Yes Allergies Reviewed: Yes Beta Blockers on Current Med List: No Anesthesia Results - Labs 03/15/19 04:01 03/15/19 04:01 Laboratory Tests 05/19/19 05/20/19 05/20/19 14:25 04:01 04:01 PT 15.3 H INR 1.4 APTT 32.3 Est GFR (Non-Af Amer) 41 L Calcium 8.2 L Magnesium 1.7 Anesthesia Exam Vital Signs/O2 Sat, Most Current Temp Pulse Resp BP Pulse Ox 98.5 F 87 16 154/86 98 03/15/19 09:35 03/15/19 09:35 03/15/19 09:35 03/15/19 09:35 03/15/19 09:35 Weight: 72 KG - BMI 19 NPO (# of Hours): 8 - HEENT Mallampati: III (BEARDED) Teeth: Missing, Poor dentition - Cardiac Rhythm: Irregular - Pulmonary Breath Sounds: bilateral Clear Anesthesia Assess/Plan ASA Score: 4 Anesthetic Plan: General Monitoring Plan: Standard Monitors Recovery Plan: PACU
[2019-03-15] MEDS ORDERED: Vancomycin 1,000 MG VIAL ONE (16:19)
[2019-03-15] MEDS ORDERED: Lidocaine -MPF 2% 2 ML VIAL ONE (16:36)
[2019-03-15] MEDS ORDERED: *HR* Succinylcholine 200 MG/10 ML VIAL IVP ONE (16:36)
[2019-03-15] MEDS ORDERED: *HR* FentaNYL (PF) 100 MCG/2 ML VIAL ONE (16:36)
[2019-03-15] MEDS ORDERED: Ondansetron 4 MG/2 ML VIAL ONE (16:36)
[2019-03-15] MEDS ORDERED: Dexamethasone 4 MG/ML VIAL ONE (16:36)
[2019-03-15] MEDS ORDERED: *HR* Midazolam HCl 2 MG/2 ML VIAL ONE (16:37)
[2019-03-15] MEDS ORDERED: *HR* Propofol 200 MG/20 ML VIAL IVP ONE (16:38)
[2019-03-15] MEDS ORDERED: Bacitracin 50,000 UNIT, Polymyxin B Sulfate 500,000 UNIT, Sodium Chloride IRRigation 1,... IR ONE (17:00)
[2019-03-15] MEDS ORDERED: Lidocaine -MPF 4% 5 ML AMPUL ONE (17:00)
[2019-03-15] MEDS ORDERED: *HR* PHENYLEPHRINE 1,000 MCG/10 ML SYRINGE IVP ONE (17:37)
[2019-03-15] MEDS ORDERED: *HR* Warfarin 7.5 MG TABLET PO ONE (18:00)
--- NOTE | 2019-03-15 18:06 | Orthopedic Operative Note ---
Date of procedure: 03/15/19 Pre-op diagnosis: Lumbar wound dehiscence, infected lumbar wound Post-op diagnosis: same Operation/Findings: Irrigation and debridement, packing lumbar wound:The patient was brought to the operative theater where he underwent general endotracheal anesthesia. He was given antibiotics prior to the start of the procedure. Compression boots and stockings were used for deep vein thrombosis prophylaxis. The patient was placed prone on a Sesar table. The back was prepped and draped in the usual sterile fashion. An incision was marked a and centered over the previous incision in the midline of the lumbar spine. There was an open area in the midportion of the wound. Inspection revealed the fascia to be intact without defects. There is no gross purulence. The tissue appeared relatively uncompromised. There was a dehisced/broken down skin region in the midportion of the wound involving the skin and subcutaneous layers. We took her lumbar wound cultures above the fascia and sent for microbiologic evaluation. We then copiously irrigated the wound with 3 L of vancomycin impregnated normal saline. Any loose tissue was debrided. We then packed the wound above the fascia with Betadine diluted Kerlix dressings. The dressings were secured with interrupted 1 Prolene suture. Sterile dressings were placed over the wound, including over lying Ioban to secure the dressings in place. the patient was turned supine in a hospital bed, and was extubated in the operative theater. All sponge needles and instrument counts were correct at the end of the procedure. The patient tolerated the procedure well without complications. Anesthesia: GETA Surgeon: Micky Nguyen Jr Was there an assistant media buyer present: No Estimated blood loss (cc): 30 Specimen: Lumbar wound cultures Condition: stable Disposition: PACU
--- NOTE | 2019-03-15 18:49 | Anesthesia Evaluation Post Op ---
Date of Encounter: 03/15/19 Time of Encounter: 18:49 - Vital Signs Vital Signs: Vital Signs/O2 Sat, Most Current Temp Pulse Resp BP Pulse Ox 98.3 F 85 12 147/90 99 03/15/19 18:43 03/15/19 18:43 03/15/19 18:43 03/15/19 18:43 03/15/19 18:43 - Lungs Lungs: Clear Ascult./Percussion - Airway Airway: Non-obstructed - Cardiovascular Regular Rate - Mental Status Mental Status: Alert & Oriented, Answers Appropriately - Pain Pain Scale: 0 Pain Scale used: Numeric (1 - 10) - Nausea Vomiting Nausea Vomiting: Not Present - Hydration Hydration: Ice chips, Has not voided - Discharge PostOp Status: Transfer Patient to floor
[2019-03-15] MEDS ORDERED: Acetaminophen 325 MG TABLET PO PRN (19:32)
[2019-03-15] MEDS ORDERED: Naloxone 0.4 MG/ML INJ IVP PRN (19:32)
[2019-03-15] MEDS ORDERED: Ondansetron 4 MG/2 ML VIAL IVP PRN (19:32)
[2019-03-15] MEDS: *HR* HYDROcodone/Acet 5/325 mg TABLET PO PRN (19:47)
[2019-03-15] MEDS: Ringers Solution, Lactated 1,000 ML IVC SCH (19:48)
[2019-03-16] MEDS: Ringers Solution, Lactated 1,000 ML IVC SCH ×3 (02:45→20:17)
[2019-03-16] MEDS: *HR* HYDROcodone/Acet 5/325 mg TABLET PO PRN ×2 (02:46→20:19)
[2019-03-16 03:57] LABS: Basophils % 0.2 %; Hematocrit 27.9 % (37.5-50.1); Hemoglobin 9.1 g/dL (12.9-16.9); Immature Granulocytes % 0.7 % (0-4); Lymphocytes # 0.8 K/mcL (0.6-4.6); Lymphocytes % 6.3 %; Mean Corpuscular HGB Conc 32.6 g/dL (31.6-35.5); Mean Corpuscular Hemoglobin 30.4 pg (28.0-33.3); Mean Corpuscular Volume 93.3 fL (83.0-100.0); Mean Platelet Volume 10.7 fL (9.4-12.4); Monocytes # 0.3 K/mcL (0.0-1.3); Monocytes % 2.4 %; Neutrophils # 10.9 K/mcL (1.6-8.9); Platelet Count 429 K/mcL (140-400); Red Blood Count 2.99 M/mcL (4.19-5.50); Red Cell Distribution Width 13.7 % (11.5-14.5); Segmented Neutrophils % 90.4 %
--- NOTE | 2019-03-16 09:38 | Internal Med Progress Note ---
Hospitalist Progress Note - Encounter Date of Encounter: 03/16/19 Time of Encounter: 09:36 - Subjective Interval History: Pt seen and examined in the room. He had a back surgery yesterday. Pain has been controlled. Back dressing was inspected and has no drainage noted. He has no fever, chills, or night sweats overnight. I encouraged him to eat more food and he refuses dietary consult at this time. - Exam Vitals: Temp Pulse Resp BP Pulse Ox 98.7 F 83 16 140/81 100 03/16/19 04:28 03/16/19 04:28 03/16/19 04:28 03/16/19 04:28 03/16/19 04:28 Exam: PHYSICAL EXAMINATION: GENERAL APPEARANCE: The patient is alert, oriented and in no acute distress. HEENT: Head is normocephalic. The sinuses are nontender. Pupils are equal and reactive. The nares are patent. Oropharynx clear without lesions. NECK: Supple without lymphadenopathy. HEART: Regular rate and rhythm. LUNGS: No crackles or wheezes are heard. ABDOMEN: Soft, nontender, nondistended with good bowel sounds heard. Inguinal area is normal. EXTREMITIES: Without cyanosis, clubbing or edema. NEUROLOGICAL: Gross nonfocal. SKIN: back wound dressing intact. - Assessment and Plan (1) Wound dehiscence, surgical Current Visit: Yes Status: Acute Assessment and Plan: Had back surgery per Dr. Melchor yesterday. Orthopedic following, appreciate help. Continue scheduled IV antibiotics. Wound care following, appreciate help. (2) Wound infection after surgery Current Visit: No Status: Acute Assessment and Plan: Continue current antibiotics, ID following, appreciate help. (3) Hypomagnesemia Current Visit: Yes Status: Resolved Assessment and Plan: Resolved, continue home oral magnesium supplement. (4) CKD (chronic kidney disease) Current Visit: No Status: Chronic Assessment and Plan: Cr at the baseline, continue monitoring. (5) HTN (hypertension) Current Visit: No Status: Chronic Assessment and Plan: Continue monitoring BP, continue home medication. (6) Afib Current Visit: No Status: Acute Assessment and Plan: Rate controlled, continue home medication including Coumadin. pharmacy to dose. (7) Severe protein-calorie malnutrition Current Visit: No Status: Acute Assessment and Plan: nutrition consult. (8) DVT prophylaxis Current Visit: Yes Status: Acute Assessment and Plan: Patient on Coumadin. - Time Spent with Patient Total time spent is greater than 50% in coordination of care (as documented) at patient's floor/unit and/or counseling patient: Greater than 35 minutes Plan of Care Discussed with: patient Internal Medicine: Result - Labs CBC & Chem 7: 03/16/19 03:00 03/15/19 04:01 Labs: Short CBC 03/16/19 Range/Units 03:00 WBC 12.0 H (4.3-11.1) K/mcL Hgb 9.1 L (12.9-16.9) g/dL Hct 27.9 L (37.5-50.1) % Plt Count 429 H (140-400) K/mcL Neutrophils # 10.9 H (1.6-8.9) K/mcL BMP 03/15/19 04:01 Sodium 135 L Potassium 3.6 Chloride 100 Carbon Dioxide 26 BUN 13 Creatinine 1.70 H Glucose 92 Calcium 8.2 L - ABG Interpretation ABG results: PT/INR, D-dimer PT 15.3 Seconds (9.4-12.1) H 03/15/19 04:01 Consult Discharge Plan - Plan Referrals: Amanda Kelley, SCRIPT DEVELOPER [Primary Care Provider] - (1) Wound dehiscence, surgical Qualifiers: Encounter type: initial encounter Qualified Code(s): T81.31XA - Disruption of external operation (surgical) wound, not elsewhere classified, initial encounter (4) CKD (chronic kidney disease) Qualifiers: Chronic kidney disease stage: stage 3 (moderate) Qualified Code(s): N18.3 - Chronic kidney disease, stage 3 (moderate) (5) HTN (hypertension) Qualifiers: Hypertension type: essential hypertension Qualified Code(s): I10 - Essential (primary) hypertension (6) Afib Qualifiers: Atrial fibrillation type: unspecified Qualified Code(s): I48.91 - Unspecified atrial fibrillation
[2019-03-16 11:10] LABS: Calcium 8.7 mg/dL (8.6-10.3); Potassium 4.4 mEq/L (3.5-5.1)
--- NOTE | 2019-03-16 11:27 | Infectious Disease Progress No ---
ID Progress Note Date of Encounter: 03/16/19 Time of Encounter: 10:30 - Subjective Subjective: Patient seen and examined. No acute events noted overnight. Postop day #1 from irrigation and debridement and packing of lumbar wound 03/15/[address] Nguyen. Patient denies fevers, chills, or rigors. Denies chest pain, shortness of breath, or cough. Denies nausea, vomiting, diarrhea, or constipation. Reports last bowel movement was yesterday and he is passing gas today. Denies abdominal pain or urinary complaints. States his appetite is good. Denies any numbness, tingling, or weakness in extremities. Denies oral thrush or skin lesions. Reports minimal pain at the surgical site. - Objective CBC & Chem 7: 03/17/19 08:45 03/16/19 07:22 - Exam Vitals: Temp Pulse Resp BP Pulse Ox 97.4 F L 83 14 128/74 97 03/16/19 10:23 03/16/19 10:23 03/16/19 10:23 03/16/19 10:23 03/16/19 10:23 Exam: Head: Atraumatic, normal inspection, normocephalic. Eye: EOMI, PERRLA, no scleral icterus noted. ENT: Mucous membranes moist. No odontogenic infection noted. Neck: Normal inspection, no meningismus. Respiratory: Clear to auscultation. No rales, respiratory distress, rhonchi, or wheezes noted. Cardiovascular: Regular rate and rhythm, S1 and S2 audible. No murmurs, rubs, or gallops. GI: Soft, nondistended, normal bowel sounds. Extremities:No joint swelling, pedal edema, or tenderness noted. Back: Postop dressing intact. Neurological: Alert, oriented 3, no focal deficits. Psychiatric: normal affect, normal mood. Skin: Dry, intact, warm. Normal color. No rashes. - Assessment and Plan (1) Wound dehiscence, surgical Current Visit: Yes Status: Acute Location: Lumbar spine. Etiology: Likely multifactorial: Poor nutrition plus a bony prominence plus poss ible infection. ESR improved, but CRP back up. Orthospine consulted. Status post I & D of the lumbar spine. Operative note reviewed. Cultures obtained. No purulence and the fascia was not disrupted. Currently on daptomycin. Qualifiers: Encounter type: initial encounter Qualified Code(s): T81.31XA - Disruption of external operation (surgical) wound, not elsewhere classified, initial encounter SNOMED Code(s): 545167350 (2) Wound infection after surgery Current Visit: No Status: Acute Causative organism: MRSA. Etiology: Likely secondary to recent surgical procedure. Status post posterior fusion of T 11 through L2 at [facility] 3 weeks prior to admission. CT thoracic and lumbar spine 02/09/19 showed a posterior changes status post mu ltilevel thoracolumbar fusion with satisfactory position of the pedicle screws and rods and L1 burst fracture with retropulsion causing severe canal stenosis with evidence of decompressive laminectomy identified. Ortho-spine consult and following. Status post fusion exploration, removal of hardware, and I & D 02/12/[address] Nguyen. Operative note reviewed. No gross purulence noted. Intra-op cultures negative. Status post I & D and closure of wound 02/15/[address] Nguyen. Operative note reviewed. No purulence noted. No additional cultures were obtained. No evidence of new infections noted during surgery 03/15/19, but cultures are pending. Currently on Daptomycin. SNOMED Code(s): 40352301, 716930449 (3) ESTEVAN (acute kidney injury) Current Visit: No Status: Acute Improved. Has not been on dialysis since discharge from the hospital. Serum creatinine improved. Strict I's and O's. Avoid nephrotoxic agents and dose adjust medications. SNOMED Code(s): 80889769, 86908166 (4) History of lumbar fusion Current Visit: No Status: Chronic Status post spinal fusion T11-L2 at [facility] secondary to L1 burst fracture. SNOMED Code(s): 301394471, 308349833 (5) Anemia Current Visit: No Status: Chronic Qualifiers: Anemia type: iron deficiency Iron deficiency anemia type: unspecified iron deficiency Qualified Code(s): D50.9 - Iron deficiency anemia, unspecified SNOMED Code(s): 277985631 (6) CKD (chronic kidney disease) Current Visit: No Status: Chronic Qualifiers: Chronic kidney disease stage: stage 3 (moderate) Qualified Code(s): N18.3 - Chronic kidney disease, stage 3 (moderate) SNOMED Code(s): 167597462 (7) Afib Current Visit: No Status: Acute Qualifiers: Atrial fibrillation type: unspecified Qualified Code(s): I48.91 - Unspecified atrial fibrillation SNOMED Code(s): 80732220 (8) Cirrhosis Current Visit: No Status: Chronic Qualifiers: Hepatic cirrhosis type: alcoholic cirrhosis Qualified Code(s): K70.31 - Alcoholic cirrhosis of liver with ascites SNOMED Code(s): 43822530 - Recommendations Recommendations: Await blood cultures to finalize. Await intra-op cultures. Wound care per the orthospine team. Continue daptomycin 500 mg IV every 24 hours. Duration of treatment depends on the clinical picture. Monitor renal function and does adjust antibiotics. Consult Discharge Plan - Plan Referrals: Amanda Kelley, BACTERIOLOGIST FISHERY [Primary Care Provider] - - Attending Attestation I have personally performed a face to face evaluation on this patient. I have reviewed and agree with the care plan. History and Exam by me shows: Assessment and plan 1.Surgical wound dehiscence lumbar spine s/p I&D by Dr. Nguyen 03/15 2.Wound infection after surgery at outside hospital with MRSA requiring explantation of hardware on 02/12/2019 and closure of the wound on 02/15/2019 3.Acute kidney injury likely secondary to vancomycin. Patient was switched to daptomycin kidney seems to be resolving 4.Liver cirrhosis etiology not clear 5.Atrial fibrillation 6.Chronic kidney disease Recommendations: Discussed with Dr. Nguyen. He said fascia was intact. There is no necrotic tissue or pus. Intra-Op cultures obtained. Continue daptomycin
[2019-03-16] MEDS: DAPTOmycin 500 MG in 0.9 % Sodium Chloride 100 ML IVPB SCH (14:44)
[2019-03-16] MEDS ORDERED: *HR* OxyCODONE Immed Rel 5 MG TABLET PO PRN (16:23)
--- NOTE | 2019-03-16 17:52 | Anesthesia Evaluation PreOp ---
Date of Encounter: 03/16/19 Time of Encounter: 17:50 - Past History Planned Operation: Lumber I & D and Closure Cardiac History: HTN, Arrhythmia (AFib) Pulmonary History: Other (RIGHT PLEURAL EFUSION) OVERSIZE LOAD PILOT ESCORT History: Denies Any Significant HX Other Medical History: Hepatic (Cirrhosis), Renal (CKS Stage 3), Other (ANEMIA, WOUND DEHISCENCE) Anesthesia History: No Prior Anesthetic Complications, Past Anesthesia (Multiple back sx) Alcohol Use: heavy Drug use: none Medications and Allergies Cyclobenzaprine [Flexeril] 10 mg PO TID PRN 01/30/19 [History] Ergocalciferol (VITAMIN D2) [Drisdol (50,000 Unit)] 50,000 unit PO MO 01/30/19 [History] Lisinopril [Zestril] 5 mg PO DAILY 01/30/19 [History] Sennosides/Docusate Sodium [Docusate Sodium-Senna Tablet] 1 each PO DAILY 01/30/19 [History] Oxycodone HCl [Roxybond] 5 mg PO Q6H PRN 02/07/19 [History] DAPTOmycin [Daptomycin] 500 mg IV Q24H #18 vial 03/09/19 [Rx] Diltiazem CD (24hr) [Cardizem CD] 360 mg PO DAILY #30 cap.er.24h 03/12/19 [Rx] Lactobacillus [Culturelle] 1 each PO BID #28 cap.sprink 03/12/19 [Rx] Magnesium Oxide [Mag-Ox] 400 mg PO BID #14 tablet 03/12/19 [Rx] Metoprolol Succinate 200 mg PO DAILY #30 tab.er.24h 03/12/19 [Rx] Potassium Chloride 10 meq PO BID #14 tab.er.prt 03/12/19 [Rx] Sodium Chloride [Sodium Chloride Tab] 1 gm PO BIDWM #0 03/12/19 [Rx] Warfarin [Coumadin] 7.5 mg PO DAILY@1800 #15 tablet 03/12/19 [Rx] Allergy/AdvReac Type Severity Reaction Status Date / Time No Known Allergies Allergy Verified 03/15/19 10:39 - Meds/Allergy Pre-op Review Medications Reviewed: Yes Allergies Reviewed: Yes Beta Blockers on Current Med List: Yes (New order - not given as of 18:00) Anesthesia Results - Labs 03/16/19 03:00 03/16/19 07:22 - Imaging EKG: report reviewed (AFib RVR on admission now controlled) Additional studies: Echocardiogram Date of Study: 01/29/2019 Impressions: LVEF 60-65%. Indeterminate diastolic function. Normal right ventricular structure and function. Mild mitral regurgitation. Mild tricuspid regurgitation. No pulmonary hypertension. Mild ascending aorta dilation. Anesthesia Exam Vital Signs/O2 Sat, Most Current Temp Pulse Resp BP Pulse Ox 97.9 F 87 16 142/76 98 03/16/19 15:11 03/16/19 15:11 03/16/19 15:11 03/16/19 15:11 03/16/19 15:11 NPO (# of Hours): > 8 hrs Pain Scale: 0 Pain Scale Used: Numeric (1 - 10) - HEENT Pupil (Motor): Pupils equal, EOMI Mallampati: III Teeth: Missing, Poor dentition Oral Opening: Greater than 3 - OVERSIZE LOAD PILOT ESCORT LOC: Oriented OVERSIZE LOAD PILOT ESCORT Motor: Normal RUE, Normal LUE, Normal RLE, Normal LLE, Normal Face OVERSIZE LOAD PILOT ESCORT Sensory: Normal: RUE, LUE, RLE, LLE, Face - Cardiac Rhythm: Regular Murmur: None JVD: No Carotid Bruit: No - Pulmonary Breath Sounds: bilateral Clear Respiratory Effort: Symmetrical Anesthesia Assess/Plan ASA Score: 4 Level of consciousness: Cooperative Anesthetic Plan: General Autologous Blood: Yes Monitoring Plan: Standard Monitors Recovery Plan: PACU
[2019-03-16] MEDS: Magnesium Oxide 400 MG TABLET PO SCH (20:19)
[2019-03-17] MEDS: Ringers Solution, Lactated 1,000 ML IVC SCH (05:59)
[2019-03-17] MEDS ORDERED: Bacitracin 50,000 UNIT, Polymyxin B Sulfate 500,000 UNIT, Sodium Chloride IRRigation 1,... IR ONE (06:00)
--- NOTE | 2019-03-17 08:05 | Internal Med Progress Note ---
Hospitalist Progress Note - Encounter Date of Encounter: 03/17/19 Time of Encounter: 07:53 - Subjective Interval History: Patient was seen and examined at bedside. Currently states that his pain is controlled. Discussed treatment plan with the patient who verbalized understanding - Exam Vitals: Temp Pulse Resp BP Pulse Ox 97.7 F 90 15 169/85 99 03/17/19 07:08 03/17/19 07:08 03/17/19 07:08 03/17/19 07:08 03/17/19 07:08 Exam: PHYSICAL EXAMINATION: GENERAL APPEARANCE: The patient is alert, oriented and in no acute distress. HEENT: Head is normocephalic. The sinuses are nontender. Pupils are equal and reactive. The nares are patent. Oropharynx clear without lesions. NECK: Supple without lymphadenopathy. HEART: Regular rate and rhythm. LUNGS: No crackles or wheezes are heard. ABDOMEN: Soft, nontender, nondistended with good bowel sounds heard. Inguinal area is normal. EXTREMITIES: Without cyanosis, clubbing or edema. NEUROLOGICAL: Gross nonfocal. Denies any numbness or tingling SKIN: back wound dressing intact. - Assessment and Plan (1) Hypomagnesemia Current Visit: Yes Status: Resolved Assessment and Plan: Resolved, continue home oral magnesium supplement. Continue to monitor (2) HTN (hypertension) Current Visit: No Status: Chronic Assessment and Plan: Continue monitoring BP, continue home medication. (3) Afib Current Visit: No Status: Acute Assessment and Plan: Rate controlled, continue home cardizem and Coumadin on hold due to recent back surgery Will resume once approved by orthospine (4) Wound infection after surgery Current Visit: No Status: Acute Assessment and Plan: Continue current antibiotics, ID following, appreciate help. Monitor white count no fever at this time (5) Severe protein-calorie malnutrition Current Visit: No Status: Acute Assessment and Plan: Secondary to poor by mouth intake history of alcohol abuse frequent hospitalization acute evidence greater than 10% weight loss in 3 months severe muscle and fat wasting nutrition consult. (6) Wound dehiscence, surgical Current Visit: Yes Status: Acute Assessment and Plan: Had back surgery per Dr. Melchor 03/15/19. Orthopedic following, appreciate help. Continue scheduled IV antibiotics. Wound care following, appreciate help. (7) CKD (chronic kidney disease) Current Visit: No Status: Chronic Assessment and Plan: Cr at the baseline, continue monitoring. Avoid nephrotoxins monitor intake and output Renal dose antibiotics (8) DVT prophylaxis Current Visit: Yes Status: Acute Assessment and Plan: Patient on Coumadin-which is being held due to surgery will discuss with [facility] history about resuming. Will place on SCDs - Time Spent with Patient Total time spent is greater than 50% in coordination of care (as documented) at patient's floor/unit and/or counseling patient: Internal Medicine: Result - Labs CBC & Chem 7: 03/16/19 03:00 03/16/19 07:22 Labs: BMP 03/16/19 07:22 Sodium 134 L Potassium 4.4 Chloride 100 Carbon Dioxide 26 BUN 20 Creatinine 1.73 H Glucose 157 H Calcium 8.7 - ABG Interpretation ABG results: PT/INR, D-dimer PT 15.3 Seconds (9.4-12.1) H 03/15/19 04:01 Consult Discharge Plan - Plan Referrals: Amanda Kelley, ULTRASONIC HAND SOLDERER [Primary Care Provider] - (2) HTN (hypertension) Qualifiers: Hypertension type: essential hypertension Qualified Code(s): I10 - Essential (primary) hypertension (3) Afib Qualifiers: Atrial fibrillation type: unspecified Qualified Code(s): I48.91 - Unspecified atrial fibrillation (6) Wound dehiscence, surgical Qualifiers: Encounter type: initial encounter Qualified Code(s): T81.31XA - Disruption of external operation (surgical) wound, not elsewhere classified, initial encounter (7) CKD (chronic kidney disease) Qualifiers: Chronic kidney disease stage: stage 3 (moderate) Qualified Code(s): N18.3 - Chronic kidney disease, stage 3 (moderate)
[2019-03-17] MEDS: Magnesium Oxide 400 MG TABLET PO SCH (08:10)
[2019-03-17] MEDS: *HR* HYDROcodone/Acet 5/325 mg TABLET PO PRN (08:15)
[2019-03-17 09:00] LABS: Basophils % 0.2 %; Hematocrit 25.9 % (37.5-50.1); Hemoglobin 8.2 g/dL (12.9-16.9); Immature Granulocytes % 0.5 % (0-4); Lymphocytes # 1.5 K/mcL (0.6-4.6); Lymphocytes % 9.9 %; Mean Corpuscular HGB Conc 31.7 g/dL (31.6-35.5); Mean Corpuscular Volume 94.9 fL (83.0-100.0); Monocytes # 1.1 K/mcL (0.0-1.3); Monocytes % 7.3 %; Neutrophils # 12.2 K/mcL (1.6-8.9); Platelet Count 411 K/mcL (140-400); Red Blood Count 2.73 M/mcL (4.19-5.50); Red Cell Distribution Width 13.8 % (11.5-14.5); Segmented Neutrophils % 82.1 %
[2019-03-17] MEDS ORDERED: Diltiazem CD (24hr) 180 MG CAPSULE PO SCH (09:00)
[2019-03-17 09:07] LABS: INR 1.1; Prothrombin Time 12.6 Seconds (9.4-12.1)
[2019-03-17 09:32] LABS: Potassium 4.2 mEq/L (3.5-5.1)
[2019-03-17 09:39] LABS: Calcium 8.2 mg/dL (8.6-10.3)
--- NOTE | 2019-03-17 09:58 | Orthopedics Progress Note ---
Date of Encounter: 03/17/19 Time of Encounter: 10:00 - Assessment and Plan (1) Wound dehiscence, surgical Current Visit: Yes Status: Acute Qualifiers: Encounter type: initial encounter Qualified Code(s): T81.31XA - Disruption of external operation (surgical) wound, not elsewhere classified, initial encounter (2) Wound infection after surgery Current Visit: No Status: Inactive (3) History of lumbar fusion Current Visit: No Status: Chronic Patient is a 63-year-old gentleman who presented to [place] on 02/07/2019 with altered mental status, spine surgical services are consulted on 02/10/2019 for management of infected thoracolumbar surgical wound. Patient apparently had a thoracolumbar fusion at [place] 3 weeks prior to admission (approximately mid- December 2018) and subsequently developed altered mental status postoperatively. S/p Irrigation and debridement, closure lumbar wound performed by Dr. Nguyen on 02/15/19 for Infected lumbar wound and postop from Exploration of fusion, removal of hardware, irrigation and debridement and packing lumbar wound performed by Dr. Nguyen on 02/12/19 for Infected lumbar wound, status post lumbar fusion. Lumbar wound closure sutures were removed on 03/09/19 with appropriate wound healing and steristrips were applied. Patient presented to [facility] from [facility] rehab on 03/14/19 for concerns regarding his wound stating it was draining and had "opened up". Patient found to have lumbar wound dehiscence and underwent Irrigation and debridement, packing lumbar wound on 03/15/[address] Nguyen[address] Per Dr[address] Nguyen there was no purulence noted and wound did not extend into or past the fascia. Subjective Principal diagnosis: Wound dehiscence, infected lumbar wound Interval history: POD#2 s/p Date of procedure: 03/15/19 Pre-op diagnosis: Lumbar wound dehiscence, infected lumbar wound Post-op diagnosis: same Operation/Findings: Irrigation and debridement, packing lumbar wound Patient seen at bedside. Resting supine sleeping upon arrival - easily awoken with verbal stimuli. A&Ox3 no acute distress. No calf tenderness, erythema, or warmth. Neurovascularly intact b/l LE. Labwork, vitals, and medications reviewed. Pain control: Adequate per patient All questions and concerns addressed. Addressed: patient with poor nutritional status and recent severe illness, likely contributing to poor wound healing. Nutrition on board at this time. PLAN: NPO today - patient reminded of importance for this - states understanding Patient to return to OR today for removal of packing and lumbar wound closure Will continue to follow inpatient Objective Vital signs: Vital Signs Temp Pulse Resp BP Pulse Ox 03/17/19 07:08 97.7 F 90 15 169/85 99 03/17/19 02:33 97.8 F 87 14 154/77 97 03/16/19 19:55 98.0 F 91 14 144/81 97 03/16/19 15:11 97.9 F 87 16 142/76 98 03/16/19 10:23 97.4 F L 83 14 128/74 97 Intake and Output 03/16/19 03/17/19 03/17/19 23:59 07:59 15:59 Intake Total 2240 / 3600 1000 / 1000 Output Total 100 / 350 50 / 50 Balance 2140 / 3250 950 / 950 Intake: IV Fluids 2000 / 3000 1000 / 1000 Lactated Ringers 1,000 ML @ 100 2000 / 3000 1000 / 1000 mls/hr IVC .Q10H PARMINDER Rx#: [id number] Oral 240 / 600 Output: Urine 100 / 350 50 / 50 Other: Meal Dinner npo breakfast Percent of Meal Consumed 10% - Labs CBC & BMP: 03/17/19 08:45 03/17/19 08:45 Labs: Abnormal lab results WBC 14.9 K/mcL (4.3-11.1) H 03/17/19 08:45 RBC 2.73 M/mcL (4.19-5.50) L 03/17/19 08:45 Hgb 8.2 g/dL (12.9-16.9) L 03/17/19 08:45 Hct 25.9 % (37.5-50.1) L 03/17/19 08:45 Plt Count 411 K/mcL (140-400) H 03/17/19 08:45 12.2 K/mcL (1.6-8.9) H 03/17/19 08:45 ESR 128 mm/hr (0-10) H 03/16/19 03:00 PT 12.6 Seconds (9.4-12.1) H 03/17/19 08:45 VBG pH 7.43 pH Units (7.32-7.42) H 03/14/19 14:42 VBG pCO2 37 mmHg (41-51) L 03/14/19 14:42 Sodium 135 mEq/L (136-145) L 03/17/19 08:45 Chloride 97 mEq/L (98-107) L 03/14/19 14:25 Carbon Dioxide 21 mEq/L (23-29) L 03/17/19 08:45 1.61 mg/dL (0.70-1.30) H 03/17/19 08:45 Est GFR ( Amer) 53 (> 60) L 03/17/19 08:45 Est GFR (Non-Af Amer) 44 (> 60) L 03/17/19 08:45 Glucose 157 mg/dL (70-105) H 03/16/19 07:22 Lactic Acid 2.4 mmol/L (0.5-2.2) H 03/14/19 14:25 Calcium 8.2 mg/dL (8.6-10.3) L 03/17/19 08:45 Magnesium 1.3 mg/dL (1.6-2.6) L 03/14/19 14:25 22 Units/L (30-223) L 03/15/19 04:01 124 mg/L (Less than 10) H 03/14/19 14:25 2.8 g/dL (3.5-5.7) L 03/14/19 14:25 4.4 g/dL (2.4-3.5) H 03/14/19 14:25 0.6 (1.1-2.2) L 03/14/19 14:25 Ur Specific [place] 1.007 (1.010-1.025) L 03/15/19 06:25 Consult Discharge Plan - Plan Referrals: Amanda Kelley, FURNITURE INSTALLER [Primary Care Provider] -
--- NOTE | 2019-03-17 10:02 | Infectious Disease Progress No ---
ID Progress Note Date of Encounter: 03/17/19 Time of Encounter: 09:05 - Subjective Subjective: Patient seen and examined. No acute events noted overnight. Postop day #2 from irrigation and debridement and packing of lumbar wound 03/15/[address] Nguyen. Patient denies fevers, chills, or rigors. Denies chest pain, shortness of breath, or cough. Denies nausea, vomiting, diarrhea, or constipation. Reports last bowel movement was this morning. Denies abdominal pain or urinary complaints. States his appetite is good, but he is NPO for OR today. Denies any numbness, tingling, or weakness in extremities. Denies oral thrush or skin lesions. Reports mild pain at the surgical site. - Objective CBC & Chem 7: 03/18/19 10:09 03/18/19 10:09 - Exam Vitals: Temp Pulse Resp BP Pulse Ox 97.7 F 90 15 169/85 99 03/17/19 07:08 03/17/19 07:08 03/17/19 07:08 03/17/19 07:08 03/17/19 07:08 Exam: Head: Atraumatic, normal inspection, normocephalic. Eye: EOMI, PERRLA, no scleral icterus noted. ENT: Mucous membranes moist. No odontogenic infection noted. Neck: Normal inspection, no meningismus. Respiratory: Clear to auscultation. No rales, respiratory distress, rhonchi, or wheezes noted. Cardiovascular: Regular rate and rhythm, S1 and S2 audible. No murmurs, rubs, or gallops. GI: Soft, nondistended, normal bowel sounds. Extremities:No joint swelling, pedal edema, or tenderness noted. Back: Postop dressing intact. Neurological: Alert, oriented 3, no focal deficits. Psychiatric: normal affect, normal mood. Skin: Dry, intact, warm. Normal color. No rashes. - Assessment and Plan (1) Wound dehiscence, surgical Current Visit: Yes Status: Acute Location: Lumbar spine. Etiology: Likely multifactorial: Poor nutrition plus a bony prominence plus poss ible infection. ESR improved, but CRP back up. Orthospine consulted. Status post I & D of the lumbar spine. Operative note reviewed. Cultures obtained. No purulence and the fascia was not disrupted. Currently on daptomycin. Qualifiers: Encounter type: initial encounter Qualified Code(s): T81.31XA - Disruption of external operation (surgical) wound, not elsewhere classified, initial encounter SNOMED Code(s): 183855963 (2) Wound infection after surgery Current Visit: No Status: Inactive Causative organism: MRSA. Etiology: Likely secondary to recent surgical procedure. Status post posterior fusion of T 11 through L2 at [facility] 3 weeks prior to admission. CT thoracic and lumbar spine 02/09/19 showed a posterior changes status post multilevel thoracolumbar fusion with satisfactory position of the pedicle screws and rods and L1 burst fracture with retropulsion causing severe canal stenosis with evidence of decompressive laminectomy identified. Ortho-spine consult and following. Status post fusion exploration, removal of hardware, and I & D 02/12/[address] Nguyen. Operative note reviewed. No gross purulence noted. Intra-op cultures negative. Status post I & D and closure of wound 02/15/[address] Nguyen. Operative note reviewed. No purulence noted. No additional cultures were obtained. No evidence of new infections noted during surgery 03/15/19, but cultures are no growth. Currently on Daptomycin. SNOMED Code(s): 17397802, 415662850 (3) ESTEVAN (acute kidney injury) Current Visit: No Status: Acute Improved. Has not been on dialysis since discharge from the hospital. Serum creatinine improved. Strict I's and O's. Avoid nephrotoxic agents and dose adjust medications. SNOMED Code(s): 80035646, 51506678 (4) History of lumbar fusion Current Visit: No Status: Chronic Status post spinal fusion T11-L2 at [facility] secondary to L1 burst fracture. SNOMED Code(s): 884534662, 308966750 (5) Anemia Current Visit: No Status: Chronic Qualifiers: Anemia type: iron deficiency Iron deficiency anemia type: unspecified iron deficiency Qualified Code(s): D50.9 - Iron deficiency anemia, unspecified SNOMED Code(s): 977815964 (6) CKD (chronic kidney disease) Current Visit: No Status: Chronic Qualifiers: Chronic kidney disease stage: stage 3 (moderate) Qualified Code(s): N18.3 - Chronic kidney disease, stage 3 (moderate) SNOMED Code(s): 835275106 (7) Afib Current Visit: No Status: Acute Qualifiers: Atrial fibrillation type: unspecified Qualified Code(s): I48.91 - Unspecified atrial fibrillation SNOMED Code(s): 09270518 (8) Cirrhosis Current Visit: No Status: Chronic Qualifiers: Hepatic cirrhosis type: alcoholic cirrhosis Qualified Code(s): K70.31 - Alcoholic cirrhosis of liver with ascites SNOMED Code(s): 65874497 - Recommendations Recommendations: Repeat CBC and BMP. Await blood cultures to finalize. Await intra-op cultures. Await repeat washout OR findings. Wound care per the orthospine team. Continue daptomycin 500 mg IV every 24 hours. Duration of treatment depends on the clinical picture. Monitor renal function and does adjust antibiotics. Consult Discharge Plan - Plan Referrals: Amanda Kelley, [employer] [Primary Care Provider] - - Attending Attestation I have personally performed a face to face evaluation on this patient. I have reviewed and agree with the care plan. History and Exam by me shows: Assessment and plan 1.Surgical wound dehiscence lumbar spine s/p I&D by Dr. Nguyen 03/15 2.Wound infection after surgery at outside hospital with MRSA requiring explantation of hardware on 02/12/2019 and closure of the wound on 02/15/2019 3.Acute kidney injury likely secondary to vancomycin. Patient was switched to daptomycin kidney seems to be resolving 4.Liver cirrhosis etiology not clear 5.Atrial fibrillation 6.Chronic kidney disease REcommendations: continue daptomycin await intra op cultures monitor labs duration of treatment depends on clinical picture
[2019-03-17] MEDS: DAPTOmycin 500 MG in 0.9 % Sodium Chloride 100 ML IVPB SCH (11:49)
[2019-03-17] MEDS ORDERED: Lidocaine -MPF 4% 5 ML AMPUL ONE (14:07)
[2019-03-17] MEDS ORDERED: Ondansetron 4 MG/2 ML VIAL ONE (14:07)
[2019-03-17] MEDS ORDERED: Lidocaine -MPF 2% 2 ML VIAL ONE (14:07)
[2019-03-17] MEDS ORDERED: Dexamethasone 4 MG/ML VIAL ONE (14:07)
[2019-03-17] MEDS ORDERED: *HR* Succinylcholine 200 MG/10 ML VIAL IVP ONE (14:07)
[2019-03-17] MEDS ORDERED: *HR* Midazolam HCl 2 MG/2 ML VIAL ONE (14:08)
[2019-03-17] MEDS ORDERED: *HR* Propofol 200 MG/20 ML VIAL IVP ONE (14:08)
[2019-03-17] MEDS ORDERED: *HR* FentaNYL (PF) 100 MCG/2 ML VIAL ONE (14:08)
[2019-03-17] MEDS ORDERED: Ondansetron 4 MG/2 ML VIAL IVP ONE (14:39)
[2019-03-17] MEDS ORDERED: *HR* Promethazine 25 MG/ML VIAL IVP PRN (14:39)
[2019-03-17] MEDS ORDERED: *HR* Phenylephrine 10 MG/ML VIAL ONE (14:47)
--- NOTE | 2019-03-17 16:17 | Orthopedic Operative Note ---
Date of procedure: 03/17/19 Pre-op diagnosis: Infected lumbar wound, wound dehiscence Post-op diagnosis: same Operation/Findings: Irrigation and debridement, closure lumbar wound: The patient was brought to the operative theater where he underwent general endotracheal anesthesia. He was given antibiotics prior to the start of the procedure. Compression boots and stockings were used for deep vein thrombosis prophylaxis. The patient was placed prone on a Sesar table. The open incision had all its Kerlix/Betadine soaked gauze removed. The back was prepped and draped in the usual sterile fashion.There is no gross purulence. The tissue appeared relatively uncompromised. There was granulation tissue with in the wound bed. Any loose tissue was debrided. We then copiously irrigated the wound with 3 L of antibiotic impregnated normal saline. We then closed the wound with interrupted 1 Prolene suture and 2-0 nylon suture. Sterile dressings were placed over the wound. The patient was turned supine in a hospital bed, and was extubated in the operative theater. All sponge needles and instrument counts were correct at the end of the procedure. The patient tolerated the procedure well without complications. Anesthesia: GETA Surgeon: Micky Nguyen Jr Was there an secretary administrative assistant present: No Estimated blood loss (cc): 30 Specimen: None Condition: stable Disposition: PACU
[2019-03-17] MEDS: *HR* HYDROmorphone (PF) 1 MG/ML SYRINGE IVP PRN ×4 (16:27→16:45)
--- NOTE | 2019-03-17 16:54 | Anesthesia Evaluation Post Op ---
Date of Encounter: 03/17/19 Time of Encounter: 16:53 - Vital Signs Vital Signs: Vital Signs/O2 Sat, Most Current Temp Pulse Resp BP Pulse Ox 98 F 88 16 131/79 100 03/17/19 16:40 03/17/19 16:40 03/17/19 16:40 03/17/19 16:40 03/17/19 16:40 - Lungs Lungs: Clear Ascult./Percussion - Airway Airway: Non-obstructed - Cardiovascular Regular Rate - Mental Status Mental Status: Alert & Oriented, Answers Appropriately - Pain Pain Scale: 0 Pain Scale used: Numeric (1 - 10) - Nausea Vomiting Nausea Vomiting: Not Present - Hydration Hydration: Ice chips, Has not voided - Discharge PostOp Status: Transfer Patient to floor
[2019-03-17] MEDS ORDERED: Naloxone 0.4 MG/ML INJ IVP PRN (17:56)
[2019-03-17] MEDS ORDERED: Ondansetron 4 MG/2 ML VIAL IVP PRN (17:56)
[2019-03-18] MEDS: *HR* OxyCODONE Immed Rel 5 MG TABLET PO PRN ×2 (01:50→21:47)
--- NOTE | 2019-03-18 08:33 | Orthopedics Progress Note ---
Date of Encounter: 03/18/19 Time of Encounter: 16:30 - Assessment and Plan (1) Wound dehiscence, surgical Current Visit: Yes Status: Acute Qualifiers: Encounter type: initial encounter Qualified Code(s): T81.31XA - Disruption of external operation (surgical) wound, not elsewhere classified, initial encounter (2) Wound infection after surgery Current Visit: Yes Status: Inactive (3) History of lumbar fusion Current Visit: No Status: Chronic Patient is a 63-year-old gentleman who presented to [place] on 02/07/2019 with altered mental status, spine surgical services are consulted on 02/10/2019 for management of infected thoracolumbar surgical wound. Patient apparently had a thoracolumbar fusion at [facility] 3 weeks prior to admission (approximately mid-December 2018) and subsequently developed altered mental status postoperatively. S/p Irrigation and debridement, closure lumbar wound performed by Dr. Nguyen on 02/15/19 for Infected lumbar wound and postop from Exploration of fusion, removal of hardware, irrigation and debridement and packing lumbar wound performed by Dr. Nguyen on 02/12/19 for Infected lumbar wound, status post lumbar fusion. Lumbar wound closure sutures were removed on 03/09/19 with appropriate wound healing and steristrips were applied. Patient presented to [facility] from [facility] rehab on 03/14/19 for concerns regarding his wound stating it was draining and had "opened up". Patient found to have lumbar wound dehiscence and underwent Irrigation and debridement, packing lumbar wound on 03/15/[address] Nguyen[address] Nguyen th ere was no purulence noted and wound did not extend into or past the fascia. Subjective Principal diagnosis: Wound dehiscence, infected lumbar wound Interval history: POD#3 s/p Date of procedure: 03/15/19 Pre-op diagnosis: Lumbar wound dehiscence, infected lumbar wound Post-op diagnosis: same Operation/Findings: Irrigation and debridement, packing lumbar wound Patient seen at bedside. Resting in chair upon arrival A&Ox3 no acute distress. No calf tenderness, erythema, or warmth. Dressing mostly saturated Neurovascularly intact b/l LE. Labwork, vitals, and medications reviewed. Pain control: Adequate per patient All questions and concerns addressed. Addressed: patient with poor nutritional status and recent severe illness, likely contributing to poor wound healing. Nutrition on board at this time. PLAN: Dressing changes BID so long as wound is draining. Once wound stops draining, dressing changes can be changed to once daily. Wound drainage is expected and encouraged at this point secondary to type of closure. Discussed with nurse to change dressing [place] incision daily with Iodine then apply 10pk 4x4 sterile gauze, then apply 2 ABD pads and Medipore tape. Patient will continue to be followed while inpatient. Objective Vital signs: Vital Signs Temp Pulse Resp BP Pulse Ox 03/18/19 03:34 97.3 F L 90 17 145/83 96 03/18/19 00:23 98.2 F 94 15 143/76 93 03/17/19 20:30 98.6 F 95 16 131/73 100 03/17/19 19:30 97.4 F L 93 16 118/69 2 03/17/19 18:30 98.2 F 87 16 136/67 100 03/17/19 18:00 98.2 F 86 16 139/72 100 03/17/19 17:48 98.0 F 88 16 139/71 100 03/17/19 16:50 82 16 137/77 100 03/17/19 16:40 98 F 88 16 131/79 100 03/17/19 16:30 90 18 139/85 100 03/17/19 16:20 93 18 149/93 100 03/17/19 16:10 98.4 F 100 18 148/97 98 03/17/19 12:06 98 F 77 16 149/78 99 Intake and Output 03/17/19 03/18/19 03/18/19 23:59 07:59 15:59 Output Total 720 / 800 Balance -720 / 200 Output: Urine 720 / 770 - Labs CBC & BMP: 03/19/19 03:22 03/19/19 03:22 Labs: Abnormal lab results WBC 14.9 K/mcL (4.3-11.1) H 03/17/19 08:45 RBC 2.73 M/mcL (4.19-5.50) L 03/17/19 08:45 Hgb 8.2 g/dL (12.9-16.9) L 03/17/19 08:45 Hct 25.9 % (37.5-50.1) L 03/17/19 08:45 Plt Count 411 K/mcL (140-400) H 03/17/19 08:45 12.2 K/mcL (1.6-8.9) H 03/17/19 08:45 ESR 128 mm/hr (0-10) H 03/16/19 03:00 PT 12.6 Seconds (9.4-12.1) H 03/17/19 08:45 VBG pH 7.43 pH Units (7.32-7.42) H 03/14/19 14:42 VBG pCO2 37 mmHg (41-51) L 03/14/19 14:42 Sodium 135 mEq/L (136-145) L 03/17/19 08:45 Chloride 97 mEq/L (98-107) L 03/14/19 14:25 Carbon Dioxide 21 mEq/L (23-29) L 03/17/19 08:45 1.61 mg/dL (0.70-1.30) H 03/17/19 08:45 Est GFR ( Amer) 53 (> 60) L 03/17/19 08:45 Est GFR (Non-Af Amer) 44 (> 60) L 03/17/19 08:45 Glucose 157 mg/dL (70-105) H 03/16/19 07:22 Lactic Acid 2.4 mmol/L (0.5-2.2) H 03/14/19 14:25 Calcium 8.2 mg/dL (8.6-10.3) L 03/17/19 08:45 Magnesium 1.3 mg/dL (1.6-2.6) L 03/14/19 14:25 22 Units/L (30-223) L 03/15/19 04:01 124 mg/L (Less than 10) H 03/14/19 14:25 2.8 g/dL (3.5-5.7) L 03/14/19 14:25 4.4 g/dL (2.4-3.5) H 03/14/19 14:25 0.6 (1.1-2.2) L 03/14/19 14:25 Ur Specific [place] 1.007 (1.010-1.025) L 03/15/19 06:25 Consult Discharge Plan - Plan Referrals: Amanda Kelley, [employer]OST [Primary Care Provider] - Prescriptions: Metoprolol [Lopressor] 75 mg PO BID #60 tablet
[2019-03-18 10:40] LABS: Basophils % 0.1 %; Hematocrit 27.6 % (37.5-50.1); Hemoglobin 8.9 g/dL (12.9-16.9); Immature Granulocytes % 0.4 % (0-4); Lymphocytes # 1.1 K/mcL (0.6-4.6); Lymphocytes % 7.5 %; Mean Corpuscular HGB Conc 32.2 g/dL (31.6-35.5); Mean Corpuscular Hemoglobin 30.6 pg (28.0-33.3); Mean Corpuscular Volume 94.8 fL (83.0-100.0); Mean Platelet Volume 10.2 fL (9.4-12.4); Monocytes # 0.8 K/mcL (0.0-1.3); Monocytes % 5.4 %; Neutrophils # 12.6 K/mcL (1.6-8.9); Platelet Count 473 K/mcL (140-400); Red Blood Count 2.91 M/mcL (4.19-5.50); Red Cell Distribution Width 13.7 % (11.5-14.5); Segmented Neutrophils % 86.6 %
[2019-03-18] MEDS: Diltiazem CD (24hr) 180 MG CAPSULE PO SCH (10:45)
--- NOTE | 2019-03-18 10:53 | Infectious Disease Progress No ---
ID Progress Note Date of Encounter: 03/18/19 Time of Encounter: 10:40 - Subjective Subjective: Patient seen and examined sitting up in the bedside chair. No acute events noted overnight. Postop day #3 from irrigation and debridement and packing of lumbar wound 03/15/[address] Nguyen and POD #1 from repeat I & D with closure of lumbar wound. Patient denies fevers, chills, or rigors. Denies chest pain, shortness of breath, or cough. Denies nausea, vomiting, diarrhea, or con stipation. Reports last bowel movement was yesterday. Denies abdominal pain or urinary complaints. States his appetite is good. Denies any numbness, tingling, or weakness in extremities. Denies oral thrush or skin lesions. Reports mild pain at the surgical site. - Objective CBC & Chem 7: 03/19/19 03:22 03/19/19 03:22 - Exam Vitals: Temp Pulse Resp BP Pulse Ox 98.2 F 102 18 151/80 99 03/18/19 10:42 03/18/19 10:42 03/18/19 10:42 03/18/19 10:42 03/18/19 10:42 Exam: Head: Atraumatic, normal inspection, normocephalic. Eye: EOMI, PERRLA, no scleral icterus noted. ENT: Mucous membranes moist. No odontogenic infection noted. Neck: Normal inspection, no meningismus. Respiratory: Clear to auscultation. No rales, respiratory distress, rhonchi, or wheezes noted. Cardiovascular: Regular rate and rhythm, S1 and S2 audible. No murmurs, rubs, or gallops. GI: Soft, nondistended, normal bowel sounds. Extremities:No joint swelling, pedal edema, or tenderness noted. Back: Postop dressing C/D/I. No surrounding erythema, warmth, tenderness noted. Neurological: Alert, oriented 3, no focal deficits. Psychiatric: normal affect, normal mood. Skin: Dry, intact, warm. Normal color. No rashes. - Assessment and Plan (1) Wound dehiscence, surgical Current Visit: Yes Status: Acute Location: Lumbar spine. Etiology: Likely multifactorial: Poor nutrition plus a bony prominence plus possible infection. ESR improved, but CRP back up. Orthospine consulted. Status post I & D of the lumbar spine. Operative note reviewed. Cultures obtained and are no growth. No purulence and the fascia was not disrupted. Status post repeat I & D with closure of the lumbar wound 03/17/[address] Mary mcqueen. Operative note reviewed. No evidence of infection noted intra-op. Currently on daptomycin. Qualifiers: Qualified Code(s): T81.31XA - Disruption of external operation (surgical) wound, not elsewhere classified, initial encounter SNOMED Code(s): 661117324 (2) Wound infection after surgery Current Visit: Yes Status: Inactive Causative organism: MRSA. Etiology: Likely secondary to recent surgical procedure. Status post posterior fusion of T 11 through L2 at [facility] 3 weeks prior to admission. CT thoracic and lumbar spine 02/09/19 showed a posterior changes status post multilevel thoracolumbar fusion with satisfactory position of the pedicle screws and rods and L1 burst fracture with retropulsion causing severe canal stenosis with evidence of decompressive laminectomy identified. Ortho-spine consult and following. Status post fusion exploration, removal of hardware, and I & D 02/12/[address] Nguyen. Operative note reviewed. No gross purulence noted. Intra-op cultures negative. Status post I & D and closure of wound 02/15/[address] Nguyen. Operative note reviewed. No purulence noted. No additional cultures were obtained. No evidence of new infections noted during surgery 03/15/19, and cultures are no growth. Currently on Daptomycin. SNOMED Code(s): 76587666, 663986929 (3) ESTEVAN (acute kidney injury) Current Visit: No Status: Acute Improved. Has not been on dialysis since discharge from the hospital. Serum creatinine improved. Strict I's and O's. Avoid nephrotoxic agents and dose adjust medications. SNOMED Code(s): 73247650, 71975679 (4) History of lumbar fusion Current Visit: No Status: Chronic Status post spinal fusion T11-L2 at [facility] secondary to L1 burst fracture. SNOMED Code(s): 692588993, 712640076 (5) Anemia Current Visit: No Status: Chronic Qualifiers: Qualified Code(s): D50.9 - Iron deficiency anemia, unspecified SNOMED Code(s): 286786565 (6) CKD (chronic kidney disease) Current Visit: Yes Status: Chronic Qualifiers: Qualified Code(s): N18.3 - Chronic kidney disease, stage 3 (moderate) SNOMED Code(s): 000374484 (7) Afib Current Visit: Yes Status: Acute Qualifiers: Qualified Code(s): I48.91 - Unspecified atrial fibrillation SNOMED Code(s): 73758488 (8) Cirrhosis Current Visit: No Status: Chronic Qualifiers: Qualified Code(s): K70.31 - Alcoholic cirrhosis of liver with ascites SNOMED Code(s): 34341843 - Recommendations Recommendations: Await blood cultures to finalize. Await intra-op cultures. Wound care per the orthospine team. Continue daptomycin 500 mg IV every 24 hours. (Week 4, day 6) Duration of treatment depends on the clinical picture. Initially planned to treat for 6 weeks, but may extend course given recent wound dehiscence and surgical intervention. Will discuss with the ortho team. Monitor renal function and does adjust antibiotics. Consult Discharge Plan - Plan Referrals: Erika Prado GEOGRAPHIC INFORMATION SYSTEMS DIRECTOR [Advanced Practice Nurse] - 04/06/19 2:20 pm Amanda Kelley CNP [Primary Care Provider] - Prescriptions: Metoprolol [Lopressor] 75 mg PO BID #60 tablet Oxycodone HCl [Roxybond] 5 mg PO Q6H PRN 5 Days #15 tablet.orl PRN Reason: Pain - Attending Attestation I have personally performed a face to face evaluation on this patient. I have reviewed and agree with the care plan. History and Exam by me shows: Assessment and plan 1.Surgical wound dehiscence lumbar spine s/p I&D by Dr. Nguyen 03/15 2.Wound infection after surgery at outside hospital with MRSA requiring explantation of hardware on 02/12/2019 and closure of the wound on 02/15/2019 3.Acute kidney injury likely secondary to vancomycin. Patient was switched to daptomycin kidney seems to be resolving 4.Liver cirrhosis etiology not clear 5.Atrial fibrillation 6.Chronic kidney disease REcommendations: continue daptomycin await intra op cultures monitor labs duration of treatment depends on clinical picture
[2019-03-18 11:04] LABS: Calcium 8.6 mg/dL (8.6-10.3); Potassium 4.3 mEq/L (3.5-5.1)
--- NOTE | 2019-03-18 12:18 | Internal Med Progress Note ---
Hospitalist Progress Note - Encounter Date of Encounter: 03/18/19 Time of Encounter: 12:00 - Subjective Interval History: s/p debridement of back wound overnight - Exam Vitals: Temp Pulse Resp BP Pulse Ox 98.2 F 102 18 151/80 99 03/18/19 10:42 03/18/19 10:42 03/18/19 10:42 03/18/19 10:42 03/18/19 10:42 Exam: PHYSICAL EXAMINATION: GENERAL APPEARANCE: The patient is alert, oriented and in no acute distress. HEENT: Head is normocephalic. The sinuses are nontender. Pupils are equal and reactive. The nares are patent. Oropharynx clear without lesions. NECK: Supple without lymphadenopathy. HEART: Regular rate and rhythm. LUNGS: No crackles or wheezes are heard. ABDOMEN: Soft, nontender, nondistended with good bowel sounds heard. Inguinal area is normal. EXTREMITIES: Without cyanosis, clubbing or edema. NEUROLOGICAL: Gross nonfocal. Denies any numbness or tingling SKIN: back wound dressing intact. - Assessment and Plan (1) Wound dehiscence, surgical Current Visit: Yes Status: Acute Assessment and Plan: Patient is s/p thoracolumbar fusion at [place] in Mid december. Developed altered mental status and is s/p Irrigation and debridement, closure lumbar wound performed by Dr. Nguyen on 02/15/19 for Infected lumbar wound and postop from Exploration of fusion, removal of hardware, irrigation and debridement and packing lumbar wound performed by Dr. Nguyen on 02/12/19 for Infected lumbar wound, status post lumbar fusion. Lumbar wound closure sutures were removed on 03/09/19 with appropriate wound healing and steristrips were applied. Patient presented with drainage on 03/15 and he is s/p irrigation and debridement x 2 on 03/15 and 03/17 Continue IV daptomycin (2) Wound infection after surgery Current Visit: Yes Status: Inactive Assessment and Plan: Continue current antibiotics with daptomycin, ID following, appreciate recs (3) Pleural effusion Current Visit: Yes Status: Acute Assessment and Plan: Pt has right sided pleural effusion of unclear etiology Will plan for IR guided drainage. Has no leukocytosis or fevers (4) Hypomagnesemia Current Visit: Yes Status: Resolved Assessment and Plan: Resolved, continue home oral magnesium supplement. Continue to monitor (5) HTN (hypertension) Current Visit: Yes Status: Chronic Assessment and Plan: Continue monitoring BP, continue home medication. (6) Afib Current Visit: Yes Status: Acute Assessment and Plan: Rate controlled, continue home cardizem. Resume coumadin (7) Severe protein-calorie malnutrition Current Visit: Yes Status: Acute Assessment and Plan: Secondary to poor by mouth intake history of alcohol abuse frequent hospitalization acute evidence greater than 10% weight loss in 3 months severe muscle and fat wasting nutrition consult. (8) CKD (chronic kidney disease) Current Visit: Yes Status: Chronic Assessment and Plan: Cr at the baseline, continue monitoring. Avoid nephrotoxins monitor intake and output Renal dose antibiotics (9) DVT prophylaxis Current Visit: Yes Status: Acute Assessment and Plan: Patient on Coumadin-which is being held due to surgery will discuss with Orthos et history about resuming. Will place on SCDs - Time Spent with Patient Total time spent is greater than 50% in coordination of care (as documented) at patient's floor/unit and/or counseling patient: Internal Medicine: Result - Labs CBC & Chem 7: 03/18/19 10:09 03/18/19 10:09 Labs: Short CBC 03/18/19 Range/Units 10:09 WBC 14.6 H (4.3-11.1) K/mcL Hgb 8.9 L (12.9-16.9) g/dL Hct 27.6 L (37.5-50.1) % Plt Count 473 H (140-400) K/mcL Neutrophils # 12.6 H (1.6-8.9) K/mcL BMP 03/18/19 10:09 Sodium 137 Potassium 4.3 Chloride 99 Carbon Dioxide 27 BUN 17 Creatinine 1.51 H Glucose 150 H Calcium 8.6 - ABG Interpretation ABG results: PT/INR, D-dimer PT 12.6 Seconds (9.4-12.1) H 03/17/19 08:45 Consult Discharge Plan - Plan Referrals: Amanda Kelley, [employer] RET[employer]OFIT DESIGNER [Primary Care Provider] - (1) Wound dehiscence, surgical Qualifiers: Encounter type: initial encounter Qualified Code(s): T81.31XA - Disruption of external operation (surgical) wound, not elsewhere classified, initial encounter (5) HTN (hypertension) Qualifiers: Hypertension type: essential hypertension Qualified Code(s): I10 - Essential (primary) hypertension (6) Afib Qualifiers: Atrial fibrillation type: unspecified Qualified Code(s): I48.91 - Unspecified atrial fibrillation (8) CKD (chronic kidney disease) Qualifiers: Chronic kidney disease stage: stage 3 (moderate) Qualified Code(s): N18.3 - Chronic kidney disease, stage 3 (moderate)
[2019-03-18] MEDS: DAPTOmycin 500 MG in 0.9 % Sodium Chloride 100 ML IVPB SCH (13:36)
[2019-03-18] MEDS ORDERED: *HR* Warfarin 7.5 MG TABLET PO ONE (18:00)
[2019-03-18] MEDS ORDERED: Warfarin perPT PO PRN (18:00)
[2019-03-19 03:58] LABS: Basophils % 0.1 %; Hematocrit 25.6 % (37.5-50.1); Hemoglobin 8.2 g/dL (12.9-16.9); Immature Granulocytes % 0.7 % (0-4); Lymphocytes # 1.4 K/mcL (0.6-4.6); Lymphocytes % 9.3 %; Mean Corpuscular Hemoglobin 30.1 pg (28.0-33.3); Mean Corpuscular Volume 94.1 fL (83.0-100.0); Monocytes # 1.3 K/mcL (0.0-1.3); Monocytes % 8.9 %; Platelet Count 435 K/mcL (140-400); Red Blood Count 2.72 M/mcL (4.19-5.50); Red Cell Distribution Width 13.7 % (11.5-14.5)
[2019-03-19 04:02] LABS: INR 1.1; Prothrombin Time 12.1 Seconds (9.4-12.1)
[2019-03-19 04:07] LABS: BUN/Creatinine Ratio 11 (6-26); Blood Urea Nitrogen 14 mg/dL (8-23); Calcium 8.2 mg/dL (8.6-10.3); Carbon Dioxide 27 mEq/L (23-29); Chloride 100 mEq/L (98-107); Glucose 95 mg/dL (70-105); Magnesium 1.5 mg/dL (1.6-2.6); Osmolality,Calculated 286 (280-300); Phosphorous 3.8 mg/dL (2.7-4.5); Potassium 3.8 mEq/L (3.5-5.1); Sodium 138 mEq/L (136-145); eGFR For Non-African Americans 55 (> 60)
[2019-03-19] MEDS: Diltiazem CD (24hr) 180 MG CAPSULE PO SCH (08:04)
--- NOTE | 2019-03-19 11:01 | Discharge Summary ---
Date of Encounter: 03/19/19 Time of Encounter: 10:00 - Discharge Diagnosis (1) Wound dehiscence, surgical Priority: Primary Status: Acute Assessment and Plan: 63 year old male presents emergency Department with chief complaint of wound dehiscence of his back. The patient had back surgery at [facility], developed hardware infection, was admitted to this hospital for 5 weeks, after having hardware removed, surgical debridement performed, had MRSA growing from his wound has been on IV daptomycin and continues to be on this. He is s/p thoracolumbar fusion at [place] in Mid december. Developed altered mental status and is s/p irrigation and debridement, closure of lumbar wound performed by Dr. Nguyen on 02/15/19 for Infected lumbar wound and postop from Exploration of fusion, removal of hardware, irrigation, debridement and packing lumbar wound performed by Dr. Nguyen on 02/12/19 for Infected lumbar wound, status post lumbar fusion. Lumbar wound closure sutures were removed on 03/09/19 with appropriate wound healing and steristrips were applied. He has been at a rehabilitation facility now for 3 days, he had been doing well, yesterday they noticed a small opening in his wound, when they changed his dressing, the opening had significantly increased and there was yellow drainage, and they contacted the nurse practitioner for the surgeon who referred him to the emergency department. He states that he has actually been doing very well he is eating he is drinking he is getting up and walking around he has no new numbness weakness no fevers no chills. He underwent irrigation and debridement x 2 on 03/15 and 03/17 of his back wound by Dr Nguyen. He tolerated both procedures well with no acute complication and will return home to complete a intermediate accountant course of IV daptomycin He was also noted to have a layering right pleural effusion which was tapped and drained 1L. Fluid is transudative and likely due to his liver cirrhosis. Cytology pending. He was discharged in a stable condition. 35 minutes was spent discharging this patient Qualifiers: Encounter type: initial encounter Qualified Code(s): T81.31XA - Disruption of external operation (surgical) wound, not elsewhere classified, initial encounter (2) Wound infection after surgery Priority: Primary Status: Inactive (3) Pleural effusion Priority: Primary Status: Acute (4) Hypomagnesemia Priority: Primary Status: Resolved (5) HTN (hypertension) Priority: Primary Status: Chronic Qualifiers: Hypertension type: essential hypertension Qualified Code(s): I10 - Essential (primary) hypertension (6) Afib Priority: Primary Status: Acute Qualifiers: Atrial fibrillation type: unspecified Qualified Code(s): I48.91 - Unspecif ied atrial fibrillation (7) Severe protein-calorie malnutrition Priority: Primary Status: Acute (8) CKD (chronic kidney disease) Priority: Primary Status: Chronic Qualifiers: Chronic kidney disease stage: stage 3 (moderate) Qualified Code(s): N18.3 - Chronic kidney disease, stage 3 (moderate) (9) DVT prophylaxis Priority: Primary Status: Acute Hospital course: Mr. Atkins is a 63 year old male - Time Spent with Patient Total time spent providing and/or coordinating discharge services: - Discharge Medications Prescriptions: New Metoprolol [Lopressor] 75 mg PO BID #60 tablet Continued Lisinopril [Zestril] 5 mg PO DAILY DAPTOmycin [Daptomycin] 500 mg IV Q24H #18 vial Oxycodone HCl [Roxybond] 5 mg PO Q6H PRN 5 Days #15 tablet.orl PRN Reason: Pain Cyclobenzaprine [Flexeril] 10 mg PO TID PRN #30 tablet PRN Reason: Muscle Spasm Warfarin [Coumadin] 7.5 mg PO DAILY@1800 #30 tablet Diltiazem CD (24hr) [Cardizem CD] 360 mg PO DAILY #30 cap.er.24h Lactobacillus [Culturelle] 1 each PO BID #28 cap.sprink Magnesium Oxide [Mag-Ox] 400 mg PO BID #14 tablet Sennosides/Docusate Sodium [Docusate Sodium-Senna Tablet] 1 each PO DAILY #30 tablet Ergocalciferol (VITAMIN D2) [Drisdol (50,000 Unit)] 50,000 unit PO MO #20 capsule Discontinued Metoprolol Succinate 200 mg PO DAILY #30 tab.er.24h Potassium Chloride 10 meq PO BID #14 tab.er.prt Sodium Chloride [Sodium Chloride Tab] 1 gm PO BIDWM #0 Home Medications: Lisinopril [Zestril] 5 mg PO DAILY 01/30/19 [History] DAPTOmycin [Daptomycin] 500 mg IV Q24H #18 vial 03/09/19 [Rx] Cyclobenzaprine [Flexeril] 10 mg PO TID PRN #30 tablet 03/19/19 [Rx] Diltiazem CD (24hr) [Cardizem CD] 360 mg PO DAILY #30 cap.er.24h 03/19/19 [Rx] Ergocalciferol (VITAMIN D2) [Drisdol (50,000 Unit)] 50,000 unit PO MO #20 capsule 03/19/19 [Rx] Lactobacillus [Culturelle] 1 each PO BID #28 cap.sprink 03/19/19 [Rx] Magnesium Oxide [Mag-Ox] 400 mg PO BID #14 tablet 03/19/19 [Rx] Metoprolol [Lopressor] 75 mg PO BID #60 tablet 03/19/19 [Rx] Oxycodone HCl [Roxybond] 5 mg PO Q6H PRN 5 Days #15 tablet.orl 03/19/19 [Rx] Sennosides/Docusate Sodium [Docusate Sodium-Senna Tablet] 1 each PO DAILY #30 tablet 03/19/19 [Rx] Warfarin [Coumadin] 7.5 mg PO DAILY@1800 #30 tablet 03/19/19 [Rx] Allergies/Adverse Reactions: Allergy/AdvReac Type Severity Reaction Status Date / Time No Known Allergies Allergy Verified 03/15/19 10:39 Date of admission: 03/16/19 11:06 Primary care physician: Amanda Kelley CNP Consults: 03/14/19 16:50 Consult to Infectious Diseases [CONS] Routine Consulting Provider: Infectious Disease Aniyah Reason for Consult: wound infection Call Completed: Yes Consult to Orthopedic Surgery [CONS] Routine Consulting Provider: Orthopedic and Sports Medicine Reason for Consult: wound dehisence Call Completed: Yes 03/14/19 17:01 Consult to Wound Care [CONS] Routine Reason for Consult: back wound Call Completed: Yes 03/15/19 19:32 Consult to Nurse Navigator [CONS] Routine Comment: spine navigator Consult to Physical Therapy [CONS] Routine Comment: Evaluate, develop and implement POC Reason for Consult: Postoperative rehabilitation Does patient have active BEDREST order?: Yes Is patient medically & hemodynamically stable?: Yes Patient assessed for mobility or mobilized this visit?: No Consult to Director Field Services [CONS] Routine Reason for SW Consult: Postoperative rehabilitation 03/17/19 17:56 Consult to Nurse Navigator [CONS] Routine Comment: spine navigator - Constitutional Vitals: Temp Pulse Resp BP Pulse Ox 97.9 F 57 16 163/83 93 03/19/19 06:32 03/19/19 06:32 03/19/19 06:32 03/19/19 06:32 03/19/19 06:32 General appearance: Present: A&O X 3 Exam: PHYSICAL EXAMINATION: GENERAL APPEARANCE: The patient is alert, oriented and in no acute distress. HEENT: Head is normocephalic. The sinuses are nontender. Pupils are equal and reactive. The nares are patent. Oropharynx clear without lesions. NECK: Supple without lymphadenopathy. HEART: Regular rate and rhythm. LUNGS: No crackles or wheezes are heard. ABDOMEN: Soft, nontender, nondistended with good bowel sounds heard. Inguinal area is normal. EXTREMITIES: Without cyanosis, clubbing or edema. NEUROLOGICAL: Gross nonfocal. Denies any numbness or tingling SKIN: back wound dressing intact. - Patient Status Disposition: Home, Self-Care Condition: Fair - Discharge Instructions Follow Up With: Chiquis Reaves, PAC [Physician Memorial Adviser] - 04/06/19 11:00 am (Post op week 2 follow up) Chiquis Burgess PAC [Physician Memorial Adviser] - 03/26/19 1:00 pm (Post op week one follow up) Micky Nguyen Jr, MD [Partnered Physician] - Erika Prado DUMB WAITER OPERATOR [Advanced Practice Nurse] - 04/06/19 2:20 pm Amanda Kelley CNP [Primary Care Provider] - 03/24/19 3:00 pm (Follow up for medication refills and plan of care updates)
--- NOTE | 2019-03-19 11:31 | IR Procedure Note ---
Date of procedure: 03/19/19 Consent Obtained: Verbal consent Timeout: Correct patient and procedure verified, Correct site verified Local anesthetic: Lidocaine 1% Indications: right pleural effusion Procedure Performed: thoracentesis Was there an catering assistant present: No Estimated blood loss (cc): 0 Complications: None; Tolerated procedure well Specimen: sent
[2019-03-19] MEDS: *HR* OxyCODONE Immed Rel 5 MG TABLET PO PRN (12:10)
[2019-03-19 12:18] LABS: Total Protein,Pleural Fluid 3.2 g/dL
[2019-03-19 12:24] LABS: RBC,Pleural Fluid < 0.002 M/mcL
[2019-03-19 12:37] LABS: Appearance of Pleural Fl Clear (Clear)
[2019-03-19] MEDS: DAPTOmycin 500 MG in 0.9 % Sodium Chloride 100 ML IVPB SCH (13:01)
--- NOTE | 2019-03-19 13:18 | Infectious Disease Progress No ---
ID Progress Note Date of Encounter: 03/19/19 Time of Encounter: 11:45 - Subjective Subjective: Patient seen and examined. No acute events noted overnight. Postop day #4 from irrigation and debridement and packing of lumbar wound 03/15/[address] Nguyen and POD #2 from repeat I & D with closure of lumbar wound. Patient denies fevers, chills, or rigors. Denies chest pain, shortness of breath, or cough. Denies nausea, vomiting, diarrhea, or constipation. Reports last bowel movement was yesterday. Denies abdominal pain. Reports increased urinary frequency, but denies dysuria, hematuria, hesitancy, or feelings of incomplete bladder emptying. States his appetite is good. Denies any numbness, tingling, or weakness in extremities. Denies oral thrush or skin lesions. Reports mild pain at the surgical site. Status post thoracentesis this morning. - Objective CBC & Chem 7: 03/19/19 03:22 03/19/19 03:22 - Exam Vitals: Temp Pulse Resp BP Pulse Ox 97.9 F 57 16 163/83 93 03/19/19 06:32 03/19/19 06:32 03/19/19 06:32 03/19/19 06:32 03/19/19 06:32 Exam: Head: Atraumatic, normal inspection, normocephalic. Eye: EOMI, PERRLA, no scleral icterus noted. ENT: Mucous membranes moist. No odontogenic infection noted. Neck: Normal inspection, no meningismus. Respiratory: Clear to auscultation. No rales, respiratory distress, rhonchi, or wheezes noted. Cardiovascular: Regular rate and rhythm, S1 and S2 audible. No murmurs, rubs, or gallops. GI: Soft, nondistended, normal bowel sounds. Extremities:No joint swelling, pedal edema, or tenderness noted. Back: Dressing C/D/I. No surrounding erythema, warmth, tenderness noted. Neurological: Alert, oriented 3, no focal deficits. Psychiatric: normal affect, normal mood. Skin: Dry, intact, warm. Normal color. No rashes. - Assessment and Plan (1) Wound dehiscence, surgical Current Visit: Yes Status: Acute Location: Lumbar spine. Etiology: Likely multifactorial: Poor nutrition plus a bony prominence plus possible infection. ESR improved, but CRP back up. Orthospine consulted. Status post I & D of the lumbar spine. Operative note reviewed. Cultures obtained and are negative. No purulence and the fascia was not disrupted. Status post repeat I & D with closure of the lumbar wound 03/17/[address] Mary mcqueen. Operative note reviewed. No evidence of infection noted intra-op. Currently on daptomycin. Qualifiers: Qualified Code(s): T81.31XA - Disruption of external operation (surgical) wound, not elsewhere classified, initial encounter SNOMED Code(s): 572638950 (2) Wound infection after surgery Current Visit: Yes Status: Inactive Causative organism: MRSA. Etiology: Likely secondary to recent surgical procedure. Status post posterior fusion of T 11 through L2 at [facility] 3 weeks prior to admission. CT thoracic and lumbar spine 02/09/19 showed a posterior changes status post multilevel thoracolumbar fusion with satisfactory position of the pedicle screws and rods and L1 burst fracture with retropulsion causing severe canal stenosis with evidence of decompressive laminectomy identified. Ortho-spine consult and following. Status post fusion exploration, removal of hardware, and I & D 02/12/[address] Nguyen. Operative note reviewed. No gross purulence noted. Intra-op cultures negative. Status post I & D and closure of wound 02/15/[address] Nguyen. Operative note reviewed. No purulence noted. No additional cultures were obtained. No evidence of new infections noted during surgery 03/15/19, and cultures are negative. Currently on Daptomycin. SNOMED Code(s): 45207138, 566913258 (3) ESTEVAN (acute kidney injury) Current Visit: No Status: Acute Improved. Has not been on dialysis since discharge from the hospital. Serum creatinine improved. Strict I's and O's. Avoid nephrotoxic agents and dose adjust medications. SNOMED Code(s): 44574571, 67456473 (4) History of lumbar fusion Current Visit: No Status: Chronic Status post spinal fusion T11-L2 at [facility] secondary to L1 burst fracture. SNOMED Code(s): 949631432, 674016069 (5) Anemia Current Visit: No Status: Chronic Qualifiers: Qualified Code(s): D50.9 - Iron deficiency anemia, unspecified SNOMED Code(s): 803303786 (6) CKD (chronic kidney disease) Current Visit: Yes Status: Chronic Qualifiers: Qualified Code(s): N18.3 - Chronic kidney disease, stage 3 (moderate) SNOMED Code(s): 329632635 (7) Afib Current Visit: Yes Status: Acute Qualifiers: Qualified Code(s): I48.91 - Unspecified atrial fibrillation SNOMED Code(s): 68925314 (8) Cirrhosis Current Visit: No Status: Chronic Qualifiers: Qualified Code(s): K70.31 - Alcoholic cirrhosis of liver with ascites SNOMED Code(s): 98940513 (9) Pleural effusion Current Visit: Yes Status: Acute CXR showed a right pleural effusion. CT chest showed a moderate right pleural effusion with atelectasis. IR consulted. Status post thoracentesis 03/19/19. Patient asymptomatic prior to procedure. SNOMED Code(s): 43344450 - Recommendations Recommendations: Await blood cultures to finalize. Await intra-op cultures. Send pleural fluid for cell count with differential, LDH, protein, and culture (aerobic, anaerobic, AFB, and fungal). Wound care per the orthospine team. Check urinalysis with reflex culture. Continue daptomycin 500 mg IV every 24 hours. (Week 5, day 0) Duration of treatment depends on the clinical picture. Initially planned to treat for 6 weeks, but may extend course given recent wound dehiscence and surgical intervention. Continue IV antibiotics until seen in the ID clinic. Monitor renal function and does adjust antibiotics. Will need weekly CBC, BUN/Cr, ESR, CRP, CK. Will need weekly IV care per protocol. Follow up with ID 04/06/19 at 1420. Consult Discharge Plan - Plan Referrals: Chiquis Reaves, PAC [Physician Multi Needle Machine Operator] - 04/06/19 11:00 am (Post op week 2 follow up) Chiquis Burgess PAC [Physician Multi Needle Machine Operator] - 03/26/19 1:00 pm (Post op week one follow up) Micky Nguyen Jr, MD [Partnered Physician] - Erika Prado CNP [Advanced Practice Nurse] - 04/06/19 2:20 pm Amanda Kelley CNP [Primary Care Provider] - 03/24/19 3:00 pm (Follow up for medication refills and plan of care updates) Prescriptions: Diltiazem CD (24hr) [Cardizem CD] 360 mg PO DAILY #30 cap.er.24h Warfarin [Coumadin] 7.5 mg PO DAILY@1800 #30 tablet Lactobacillus [Culturelle] 1 each PO BID #28 cap.sprink Sennosides/Docusate Sodium [Docusate Sodium-Senna Tablet] 1 each PO DAILY #30 tablet Ergocalciferol (VITAMIN D2) [Drisdol (50,000 Unit)] 50,000 unit PO MO #20 c apsule Cyclobenzaprine [Flexeril] 10 mg PO TID PRN #30 tablet PRN Reason: Muscle Spasm Metoprolol [Lopressor] 75 mg PO BID #60 tablet Magnesium Oxide [Mag-Ox] 400 mg PO BID #14 tablet Oxycodone HCl [Roxybond] 5 mg PO Q6H PRN 5 Days #15 tablet.orl PRN Reason: Pain - Attending Attestation I have personally performed a face to face evaluation on this patient. I have reviewed and agree with the care plan. History and Exam by me shows: Assessment and plan 1.Surgical wound dehiscence lumbar spine s/p I&D by Dr. Nguyen 03/15 2.Wound infection after surgery at outside hospital with MRSA requiring explantation of hardware on 02/12/2019 and closure of the wound on 02/15/2019 3.Acute kidney injury likely secondary to vancomycin. Patient was switched to daptomycin kidney seems to be resolving 4.Liver cirrhosis etiology not clear 5.Atrial fibrillation 6.Chronic kidney disease 7. Pleural effusion s/p thoracentesis Recommendations: Send pleural fluid for cell count with differential, LDH, protein, and culture (aerobic, anaerobic, AFB, and fungal). Wound care per the orthospine team. Check urinalysis with reflex culture. Continue daptomycin 500 mg IV every 24 hours. (Week 5, day 0) Duration of treatment depends on the clinical picture. Initially planned to treat for 6 weeks, but may extend course given recent wound dehiscence and surgical intervention. Continue IV antibiotics until seen in the ID clinic. Monitor renal function and does adjust antibiotics. Will need weekly CBC, BUN/Cr, ESR, CRP, CK. Will need weekly IV care per protocol. Follow up with ID 04/06/19 at 1420.
[2019-03-19 13:30] LABS: Lactate Dehydrogenase 166 Units/L (140-271); Total Protein 6.4 g/dL (6.4-8.9)
[2019-03-19 13:44] LABS: C-Reactive Protein 54 mg/L (Less than 10)
[2019-03-19 14:08] LABS: Bilirubin,Urine Negative (Negative); Blood,Urine Negative (Negative); Clarity,Urine Clear (Clear); Color,Urine Yellow (Yellow); Glucose,Urine (UA) Normal (Normal); Ketones,Urine Negative (Negative); Leukocyte Esterase,Urine Negative (Negative); Nitrite,Urine Negative (Negative); PH,Urine 7.5 pH Units (5.0-8.0); Protein,Urine Negative (Neg-Trace); Urobilinogen,Urine Normal (Normal)
[2019-03-19 15:05] VITALS: BP 153/76
--- NOTE | 2019-03-19 16:14 | Orthopedics Progress Note ---
Date of Encounter: 03/19/19 Time of Encounter: 16:15 - Assessment and Plan (1) Wound dehiscence, surgical Status: Acute Qualifiers: Encounter type: initial encounter Qualified Code(s): T81.31XA - Disruption of external operation (surgical) wound, not elsewhere classified, initial encounter (2) Wound infection after surgery Status: Inactive (3) History of lumbar fusion Status: Chronic Patient is a 63-year-old gentleman who presented to [facility] on 02/07/2019 with altered mental status, spine surgical services are consulted on 02/10/2019 for management of infected thoracolumbar surgical wound. Patient apparently had a thoracolumbar fusion at [place] 3 weeks prior to admission (approximately mid- December 2018) and subsequently developed altered mental status postoperatively. S/p Irrigation and debridement, closure lumbar wound performed by Dr. Nguyen on 02/15/19 for Infected lumbar wound and postop from Exploration of fusion, removal of hardware, irrigation and debridement and packing lumbar wound performed by Dr. Nguyen on 02/12/19 for Infected lumbar wound, status post lumbar fusion. Lumbar wound closure sutures were removed on 03/09/19 with appropriate wound healing and steristrips were applied. Patient presented to [facility] from [facility] rehab on 03/14/19 for concerns regarding his wound stating it was draining and had "opened up". Patient found to have lumbar wound dehiscence and underwent Irrigation and debridement, packing lumbar wound on 03/15/[address] Nguyen[address] Per Dr[address] Nguyen there was no purulence noted and wound did not extend into or past the fascia. Subjective Principal diagnosis: Wound dehiscence, infected lumbar wound Interval history: POD#4 s/p Date of procedure: 03/15/19 Pre-op diagnosis: Lumbar wound dehiscence, infected lumbar wound Post-op diagnosis: same Operation/Findings: Irrigation and debridement, packing lumbar wound Patient seen at bedside. Resting in bed upon arrival. Spouse at bedside. A&Ox3 no acute distress. No calf tenderness, erythema, or warmth. Dressing mostly saturated Neurovascularly intact b/l LE. Labwork, vitals, and medications reviewed. Pain control: Adequate per patient All questions and concerns addressed. Addressed: patient with poor nutritional status and recent severe illness, lik celine contributing to poor wound healing. Nutrition on board at this time. PLAN: Dressing changes BID so long as wound is draining. Once wound stops draining, dressing changes can be changed to once daily. Wound drainage is expected and encouraged at this point secondary to type of closure. Discussed with nurse to change dressing Eccles incision daily with Iodine then apply 10pk 4x4 sterile gauze, then apply 2 ABD pads and Medipore tape. Patient discharging today. Follow up appts arranged. Objective Vital signs: Vital Signs Temp Pulse Resp BP Pulse Ox 03/19/19 15:04 97.6 F 73 16 153/76 94 03/19/19 06:32 97.9 F 57 16 163/83 93 03/19/19 04:15 97.5 F L 77 15 154/79 98 03/18/19 22:00 98 03/18/19 19:40 97.7 F 65 16 136/79 98 03/18/19 17:10 97.8 F 78 15 152/79 98 Intake and Output 03/19/19 03/19/19 03/19/19 07:59 15:59 23:59 Intake Total 204 / 204 Output Total 250 / 250 Balance -250 / -46 204 / -46 Intake: IV Fluids 204 / 204 Cubicin 500 MG In 0.9 % Sodium 100 / 100 Chloride 100 ML @ 200 mls/hr IVPB Q24H [facility] Rx#:[id number] Magnesium Sulfate 2 GM In 0.9 % 104 / 104 Sodium Chloride 100 ML @ 104 mls/hr IVPB ONCE ONE Rx#: [id number] Oral 0 / 0 Output: Urine 250 / 250 Other: Percent of Meal Consumed 0% - Labs CBC & BMP: 03/19/19 03:22 03/19/19 03:22 Labs: Abnormal lab results WBC 14.8 K/mcL (4.3-11.1) H 03/19/19 03:22 RBC 2.72 M/mcL (4.19-5.50) L 03/19/19 03:22 Hgb 8.2 g/dL (12.9-16.9) L 03/19/19 03:22 Hct 25.6 % (37.5-50.1) L 03/19/19 03:22 Plt Count 435 K/mcL (140-400) H 03/19/19 03:22 12.0 K/mcL (1.6-8.9) H 03/19/19 03:22 ESR 77 mm/hr (0-10) H 03/19/19 03:22 PT 12.6 Seconds (9.4-12.1) H 03/17/19 08:45 VBG pH 7.43 pH Units (7.32-7.42) H 03/14/19 14:42 VBG pCO2 37 mmHg (41-51) L 03/14/19 14:42 Sodium 135 mEq/L (136-145) L 03/17/19 08:45 Chloride 97 mEq/L (98-107) L 03/14/19 14:25 Carbon Dioxide 21 mEq/L (23-29) L 03/17/19 08:45 1.31 mg/dL (0.70-1.30) H 03/19/19 03:22 Est GFR ( Amer) 57 (> 60) L 03/18/19 10:09 Est GFR (Non-Af Amer) 55 (> 60) L 03/19/19 03:22 Glucose 150 mg/dL (70-105) H 03/18/19 10:09 Lactic Acid 2.4 mmol/L (0.5-2.2) H 03/14/19 14:25 Calcium 8.2 mg/dL (8.6-10.3) L 03/19/19 03:22 Magnesium 1.5 mg/dL (1.6-2.6) L 03/19/19 03:22 22 Units/L (30-223) L 03/15/19 04:01 54 mg/L (Less than 10) H 03/19/19 03:22 2.8 g/dL (3.5-5.7) L 03/14/19 14:25 4.4 g/dL (2.4-3.5) H 03/14/19 14:25 0.6 (1.1-2.2) L 03/14/19 14:25 Ur Specific [place] 1.007 (1.010-1.025) L 03/15/19 06:25 Consult Discharge Plan - Plan Referrals: Chiquis Reaves, PAC [Physician Outboard Motor Tester] - (Post op week 2 follow up) Chiquis Burgess, PAC [Physician Outboard Motor Tester] - 03/26/19 1:00 pm (Post op week one follow up) Micky Nguyen Jr, MD [Partnered Physician] - Erika Prado CNP [Advanced Practice Nurse] - 04/06/19 2:20 pm Amanda Kelley CNP [Primary Care Provider] - 03/24/19 3:00 pm (Follow up for medication refills and plan of care updates) Prescriptions: Diltiazem CD (24hr) [Cardizem CD] 360 mg PO DAILY #30 cap.er.24h Warfarin [Coumadin] 7.5 mg PO DAILY@1800 #30 tablet Lactobacillus [Culturelle] 1 each PO BID #28 cap.sprink Sennosides/Docusate Sodium [Docusate Sodium-Senna Tablet] 1 each PO DAILY #30 tablet Ergocalciferol (VITAMIN D2) [Drisdol (50,000 Unit)] 50,000 unit PO MO #20 capsule Cyclobenzaprine [Flexeril] 10 mg PO TID PRN #30 tablet PRN Reason: Muscle Spasm Metoprolol [Lopressor] 75 mg PO BID #60 tablet Magnesium Oxide [Mag-Ox] 400 mg PO BID #14 tablet Oxycodone HCl [Roxybond] 5 mg PO Q6H PRN 5 Days #15 tablet.orl PRN Reason: Pain
[2019-03-19] MEDS ORDERED: *HR* Warfarin 7.5 MG TABLET PO ONE (18:00)
== END 2019-03-19 17:15 | disposition home or self-care (01) | DRG 901 ==
LOC: 3ANU 13:46 → EMEROOARM 13:46 → 3ANU 18:24
PROVIDERS: ADMIT Internal Medicine Nephrology; ATTEND Internal Medicine Nephrology